=== PATIENT | female | born 1955 | race Caucasian/White ===

== ENCOUNTER 2017-09-25 17:03 | Emergency (ER) | payer MEDICARE, OTHER ==
[~2017-09-25] VITALS: Ht 162.6 cm; Wt 80.3 kg
[~2017-09-25 17:03] MED LIST: ALPRAZOLAM0.5 MG PO; AMITRIPTYLINE H50 MG PO; AZOR; BENTYL10 MG PO; BYSTOLIC10 MG PO; CARISOPRODOL350 MG PO; CO Q-10 PO; DIAZEPAM5 MG PO; ENTOCORT EC3 MG PO; FLORASTOR250 MG PO; HUMIRA20 MG/0.4; HUMIRA40 MG/0.1 SC; LEVSIN0.125 MG PO; LIBRAX CAPSULE1 EACH PO; LOMOTIL TABLET1 EACH PO; NEXIUM40 MG PO; PENTASA500 MG PO; PENTOXIFYLLINE400 MG PO; PHENERGAN SUPP25 MG PR; PREMARIN; PREMARIN0.625 MG PO; RELPAX40 MG PO; TRENTAL400 MG PO; ULTRAM 50MG50 MG PO; VICODIN 5-5001 EACH PO; VITAMIN D35000 UNI1 PO; XYZAL5 MG PO
[2017-09-25] MEDS ORDERED: SODIUM CHLORIDE 0.9% 1000ML 1,000 ML IV STA (17:14)
--- NOTE | 2017-09-25 17:55 | Diagnostic Imaging Report ---
EXAMINATION: CHEST 2 VIEWS INDICATION: \S\ORDER PLACED BY \[id number] \S\[id number] \S\Y COMPARISON: Chest radiograph on 08/21 2011 FINDINGS: PA and lateral views TUBES and LINES: None. LUNGS: Lungs are well inflated. Lungs are clear. There is no evidence of pneumonia or pulmonary edema. PLEURA: No pleural effusion or pneumothorax. HEART AND MEDIASTINUM: The cardiomediastinal silhouette is unremarkable.. BONES AND SOFT TISSUES: No acute osseous lesion. Right upper quadrant cholecystectomy clips. UPPER ABDOMEN: No free air under the diaphragm. IMPRESSION: No acute thoracic abnormality. Signed by: Dr. Joanne Quiles M.D. on 09/25/2017 5:51 PM
[2017-09-25 18:32] LABS: BILIRUBIN,URINE NEGATIVE (NEGATIVE); KETONES,URINE NEGATIVE (NEGATIVE); LEUKOCYTE ESTERASE ,URINE 2+ (NEGATIVE); NITRITE,URINE NEGATIVE (NEGATIVE); PROTEIN,URINE DIPSTICK NEGATIVE (NEGATIVE); URINE UROBILINOGEN 0.2 mg/dL (0.2 - 1)
[2017-09-25 18:33] LABS: CLARITY,URINE SL CLOUDY (CLEAR); COLOR,URINE YELLOW (YELLOW)
[2017-09-25 18:48] LABS: ALBUMIN 3.6 g/dL (3.5-5.0); ALBUMIN/GLOBULIN RATIO 0.8 (0.8-2.0); ANION GAP 12.9 mmol/L (8-16); CALCIUM 9.4 mg/dL (8.4-10.2); CREATININE, SERUM 1.06 mg/dL (0.57-1.11); POTASSIUM 3.9 mmol/L (3.5-5.1)
[2017-09-25] MEDS ORDERED: CEFTRIAXONE SOD 1 GM VIAL IV STA (19:09)
[2017-09-25 19:36] LABS: EOSINOPHILS % 1.8 % (0.0-6.0); HEMATOCRIT 36.3 % (34.2-44.1); LYMPHOCYTES # (AUTO) 1.1 (1.0-3.2); LYMPHOCYTES % 14.4 % (18.0-39.1); MEAN CORPUSCULAR HEMOGLOBIN 28.8 pg (28-32); MEAN CORPUSCULAR HGB CONC 33.1 g/dL (31-35); MEAN CORPUSCULAR VOLUME 87.1 fL (81-99); MONOCYTES # (AUTO) 0.7 (0.2-0.8); MONOCYTES % 9.5 % (4.4-11.3); NEUTROPHILS # (AUTO) 5.4 (2.1-6.9); NEUTROPHILS % 72.9 % (38.7-80.0); PLATELET COUNT 238 x10e3/uL (140-360); RED BLOOD COUNT 4.17 x10e6/uL (3.6-5.1); RED CELL DISTRIBUTION WIDTH 13.8 % (11.7-14.4)
[2017-09-25 19:37] LABS: BASOPHILS # (AUTO) 0.1 (0.0-0.1); EOSINOPHILS # (AUTO) 0.1 (0.0-0.4)
[2017-09-25 20:08] LABS: BACTERIA,URINE FEW /HPF; EPITHELIAL CELLS,URINE MODERATE /LPF; RBC,URINE 0-5 /HPF (0-5); WBC,URINE (MAN) 0-5 /HPF (0-5)
[2017-09-25 20:15] VITALS: BP 145/84
== END 2017-09-25 20:30 | disposition home or self-care (01) ==
LOC: ER 17:03
DX: R05 Cough (principal); J20.9 Acute bronchitis, unspecified; N30.00 Acute cystitis without hematuria; Z87.19 Personal history of other diseases of the digestive system
CPT/HCPCS: 36415; 71020; 80053; 81001; 85025; 87086; 87400; 96360; 96374; 99284; J0696; J7030

== ENCOUNTER → 2017-12-16 | Outpatient (CLI) | payer MEDICARE, OTHER ==
--- NOTE | 2017-12-24 08:56 | Pulmonary Function Test ---
DATE OF STUDY: December 16, 2017 SPIROMETRY: Demonstrates normal findings. FEV1 of 2.6 L or 88% predicted and FVC was 2.8 L or 88% of predicted with normal FEV1 over FVC ratio. Flow volume loop was unremarkable. LUNG VOLUMES: As performed by nitrogen washout method demonstrate no evidence of restriction. TLC was normal at 4.79 L or 93% of predicted. DIFFUSION: Capacity was mildly decreased at 14.41 mL per minute mmHg per minute or 63% of predicted. Of note, effort was 80% of expected, which may mildly decrease the measures of diffusion on this test. SUMMARY: Mild isolated diffusion defect. This may be seen in early emphysema, early restrictive lung disease, pulmonary vascular disorders, and anemia. Clinical correlation is recommended especially noting that there was mildly decreased interpretive delay of the diffusion test. Job#: [id number] RI cc:CLARITZA ALEJANDRA M.D.
== END ==
LOC: RESP 14:24
PROVIDERS: ATTEND Internal Medicine Critical Care Medicine
DX: J30.9 Allergic rhinitis, unspecified (principal); R05 Cough; G47.10 Hypersomnia, unspecified; K50.90 Crohn's disease, unspecified, without complications; K21.9 Gastro-esophageal reflux disease without esophagitis; G47.33 Obstructive sleep apnea (adult) (pediatric)
CPT/HCPCS: 94010; 94727; 94729

== ENCOUNTER → 2018-01-07 | Outpatient (CLI) | payer MEDICARE, OTHER | LOC: SLEEP 19:32 | PROVIDERS: ATTEND Internal Medicine Critical Care Medicine | DX: G47.33 Obstructive sleep apnea (adult) (pediatric) (principal) | CPT/HCPCS: 95811 ==

== ENCOUNTER 2018-05-25 10:25 | Observation (INO) | payer MEDICARE, OTHER ==
[2018-05-25] VITALS (21 sets, daily range): BP systolic 111–150; BP diastolic 65–85
[~2018-05-25] VITALS: Ht 160 cm; Wt 78.9 kg
[~2018-05-25 10:25] MED LIST changes: +AMLODIPINE BESYL5 MG PO; +ATENOLOL50 MG PO; +BENZONATATE100 MG PO; +LOTRONEX1 MG PO; +PRIMIDONE50 MG PO
[2018-05-25] MEDS ORDERED: VERAPAMIL HCL 2.5 MG/ML 2 ML VIAL ONE (11:44)
[2018-05-25] MEDS ORDERED: LIDOCAINE HCL 2% LOCAL 20 ML VIAL ONE (11:44)
[2018-05-25] MEDS ORDERED: HEPARIN SOD (PORCINE) 1000 UNIT/ML 30ML ONE (11:44)
[2018-05-25] MEDS ORDERED: HEPARIN SOD/SOD CHLORIDE 2,000 ML ONE (11:45)
[2018-05-25] MEDS ORDERED: NITROGLYCERIN/D5W 200 MCG/ML 0 ML ONE (11:45)
[2018-05-25] MEDS ORDERED: IOPAMIDOL 370 MG/ML 200 ML INFUS..BTL INJ ONE (11:45)
[2018-05-25] MEDS ORDERED: SODIUM CHLORIDE 0.9% 1000ML 1,000 ML ONE (11:51)
[2018-05-25] MEDS ORDERED: FENTANYL CITRATE/PF 100MCG/2 ML INJ ONE (13:42)
[2018-05-25] MEDS ORDERED: MIDAZOLAM HCL 2 MG/2 ML VIAL ONE ×2 (13:42→14:32)
--- NOTE | 2018-06-17 14:46 | Operative Report ---
DATE OF PROCEDURE: May 25, 2018 INDICATIONS: TIA. PROCEDURES PERFORMED: 1. Left heart catheterization., selective coronary angiography. 2. Bilateral extracranial carotid angiograms. COMPLICATIONS: None. RECOMMENDATIONS: Insertable loop recorder for cryptogenic stroke. Access obtained in the right femoral artery. A 6-Tajik sheath was placed. Diagnostic coronary angiogram revealed minimal coronary artery disease less than 10% luminal stenosis. LV ejection fraction 65%. LV end-diastolic pressure of 10. No gradient across the aortic valve pullback. Bilateral external carotid angiograms demonstrated no carotid artery disease. Right groin repaired using Mynx. Patient discharged home same day. Job#: [id number] GH
[2018-07-18] MEDS ORDERED: PREMARIN0.625 MG PO (10:12)
[2018-07-18] MEDS ORDERED: ELLURA PO (10:12)
== END 2018-05-25 21:14 | disposition home or self-care (01) ==
LOC: CATH LAB 10:25 → PACU V 16:25 → IMCU 17:06
PROVIDERS: ADMIT Internal Medicine Interventional Cardiology; ATTEND Internal Medicine Interventional Cardiology
DX: I25.10 Atherosclerotic heart disease of native coronary artery without angina pectoris (principal); G45.9 Transient cerebral ischemic attack, unspecified; I10 Essential (primary) hypertension; Z82.49 Family history of ischemic heart disease and other diseases of the circulatory system
CPT/HCPCS: 93458; G0378; J1644; J2001; J2250; J7030; Q9967

== ENCOUNTER 2018-05-27 15:22 | Inpatient (IN) | payer MEDICARE, OTHER ==
[~2018-05-27] VITALS: Ht 162.6 cm; Wt 79.9 kg
[2018-05-27] MEDS ORDERED: SODIUM CHLORIDE 0.9% 1000ML 1,000 ML IV STA (15:58)
[2018-05-27] MEDS ORDERED: ONDANSETRON HCL INJ 2 MG/ML VIAL IV STA (15:58)
[2018-05-27 16:43] LABS: BASOPHILS % 0.3 % (0.0-1.0); EOSINOPHILS # (AUTO) 0.1 (0.0-0.4); EOSINOPHILS % 0.4 % (0.0-6.0); HEMATOCRIT 34.8 % (34.2-44.1); HEMOGLOBIN 11.2 g/dL (12.0-16.0); LYMPHOCYTES # (AUTO) 0.6 (1.0-3.2); LYMPHOCYTES % 4.9 % (18.0-39.1); MEAN CORPUSCULAR HEMOGLOBIN 27.7 pg (28-32); MEAN CORPUSCULAR HGB CONC 32.2 g/dL (31-35); MEAN CORPUSCULAR VOLUME 85.9 fL (81-99); MONOCYTES # (AUTO) 0.3 (0.2-0.8); MONOCYTES % 2.5 % (4.4-11.3); NEUTROPHILS # (AUTO) 10.8 (2.1-6.9); NEUTROPHILS % 91.5 % (38.7-80.0); PLATELET COUNT 263 x10e3/uL (140-360); RED BLOOD COUNT 4.05 x10e6/uL (3.6-5.1); RED CELL DISTRIBUTION WIDTH 13.7 % (11.7-14.4)
[2018-05-27 16:44] LABS: BILIRUBIN,URINE NEGATIVE (NEGATIVE); CLARITY,URINE SL CLOUDY (CLEAR); COLOR,URINE YELLOW (YELLOW); KETONES,URINE NEGATIVE (NEGATIVE); LEUKOCYTE ESTERASE ,URINE TRACE (NEGATIVE); NITRITE,URINE NEGATIVE (NEGATIVE); PROTEIN,URINE DIPSTICK NEGATIVE (NEGATIVE); URINE UROBILINOGEN 0.2 mg/dL (0.2 - 1)
[2018-05-27 16:55] LABS: INR 1.03; PARTIAL THROMBOPLASTIN TIME 23.6 seconds (23.8-35.5); PROTHROMBIN TIME 12.7 seconds (11.9-14.5)
[2018-05-27 16:57] LABS: AMORPHOUS SEDIMENT,URINE MODERATE (FEW); BACTERIA,URINE MANY /HPF; EPITHELIAL CELLS,URINE MANY /LPF; RBC,URINE 0-5 /HPF (0-5); TRANSITIONAL EPI CELLS,URINE MODERATE
[2018-05-27 17:03] LABS: ALBUMIN 3.3 g/dL (3.5-5.0); ALBUMIN/GLOBULIN RATIO 0.9 (0.8-2.0); CALCIUM 8.8 mg/dL (8.4-10.2); CREATININE, SERUM 1.02 mg/dL (0.57-1.11); MAGNESIUM 1.2 MG/DL (1.3-2.1)
[2018-05-27 17:09] LABS: CREATINE KINASE MB 0.6 ng/mL (0-5.0)
--- NOTE | 2018-05-27 17:18 | Diagnostic Imaging Report ---
EXAMINATION: CHEST SINGLE (PORTABLE) INDICATION: \S\ERMD ORDER \[id number] \S\[id number] \S\Y COMPARISON: Chest radiograph 09/25/2017 FINDINGS: AP view TUBES and LINES: None. LUNGS: Lungs are well inflated. Lungs are clear. There is no evidence of pneumonia or pulmonary edema. PLEURA: No pleural effusion or pneumothorax. HEART AND MEDIASTINUM: The cardiomediastinal silhouette is unremarkable. Mildly tortuous thoracic aorta. BONES AND SOFT TISSUES: No acute osseous lesion. Soft tissues are unremarkable. UPPER ABDOMEN: No free air under the diaphragm. IMPRESSION: No acute thoracic abnormality. Signed by: Dr. Joanne Quiles M.D. on 05/27/2018 5:14 PM
[2018-05-27] MEDS ORDERED: ACETAMINOPHEN 1000 MG/100 ML IV STA (17:27)
[2018-05-27] MEDS ORDERED: MAGNESIUM SULF 1GRAM/DEXTROSE 100 ML IV ONE ×2 (18:15→21:30)
[2018-05-27] MEDS ORDERED: VANCOMYCIN 1GM/NS 250 ML 250 ML IV ONE (18:15)
[2018-05-27] MEDS ORDERED: ONDANSETRON HCL INJ 2 MG/ML VIAL IV PRN (18:15)
[2018-05-27] MEDS: SODIUM CHLORIDE 0.9% 1000ML 1,000 ML IV SCH (18:24)
[2018-05-27] MEDS ORDERED: IBUPROFEN 600 MG TAB PO STA (18:25)
[2018-05-27 19:50] VITALS: BP 101/57
[2018-05-27 22:02] VITALS: BP 103/61
[2018-05-27 23:09] VITALS: BP 103/61
[2018-05-28] VITALS (8 sets, daily range): BP systolic 89–145; BP diastolic 53–72
[2018-05-28] MEDS: ACETAMINOPHEN 325 MG TAB PO PRN ×2 (03:57→22:52)
[2018-05-28] MEDS: SODIUM CHLORIDE 0.9% 1000ML 1,000 ML IV SCH ×2 (03:58→15:38)
[2018-05-28 05:16] LABS: BASOPHILS % 0.3 % (0.0-1.0); HEMATOCRIT 31.1 % (34.2-44.1); HEMOGLOBIN 9.8 g/dL (12.0-16.0); LYMPHOCYTES # (AUTO) 0.6 (1.0-3.2); MEAN CORPUSCULAR HEMOGLOBIN 27.1 pg (28-32); MEAN CORPUSCULAR HGB CONC 31.5 g/dL (31-35); MEAN CORPUSCULAR VOLUME 86.1 fL (81-99); MONOCYTES # (AUTO) 0.3 (0.2-0.8); MONOCYTES % 3.4 % (4.4-11.3); NEUTROPHILS # (AUTO) 7.7 (2.1-6.9); PLATELET COUNT 213 x10e3/uL (140-360); RED BLOOD COUNT 3.61 x10e6/uL (3.6-5.1); RED CELL DISTRIBUTION WIDTH 14.1 % (11.7-14.4)
[2018-05-28 05:37] LABS: BLOOD UREA NITROGEN 12 mg/dL (7-26); BUN/CREATININE RATIO 14 (6-25); CALCIUM 7.9 mg/dL (8.4-10.2); CARBON DIOXIDE 22 mmol/L (22-29); CHLORIDE 109 mmol/L (98-107); CREATININE, SERUM 0.84 mg/dL (0.57-1.11); EST GLOMERULAR FILTRATION RATE > 60 ML/MIN (60-); GLUCOSE 103 mg/dL (74-118); SODIUM 140 mmol/L (136-145)
[2018-05-28] MEDS ORDERED: TRAMADOL HCL 50 MG TAB PO PRN (09:00)
[2018-05-28] MEDS ORDERED: CEFTRIAXONE SOD 1 GM/NS 50 ML 50 ML IV SCH (09:00)
[2018-05-28] MEDS ORDERED: AMLODIPINE BESYLATE 5 MG TAB PO SCH (09:15)
[2018-05-28] MEDS ORDERED: BUDESONIDE 3 MG CAPCR PO SCH (09:15)
[2018-05-28] MEDS ORDERED: BENZONATATE 100 MG CAP PO SCH (09:15)
[2018-05-28] MEDS: VANCOMYCIN 1GM/NS 250 ML 250 ML IV SCH ×2 (10:12→22:52)
[2018-05-28] MEDS: PRIMIDONE 50 MG TAB PO SCH ×3 (10:12→20:56)
[2018-05-28] MEDS: ATENOLOL 50 MG TAB PO SCH (10:12)
[2018-05-28] MEDS: CHLORDIAZEPOXIDE/CLIDINIUM 1 CAP PO SCH (10:12)
[2018-05-28] MEDS: MESALAMINE 500 MG CAPCR PO SCH ×2 (10:12→17:31)
[2018-05-28] MEDS: CEFTRIAXONE SOD 1 GM VIAL IV SCH ×2 (10:12→22:52)
[2018-05-28] MEDS ORDERED: PANTOPRAZOLE SOD 40 MG TABEC PO SCH (13:00)
[2018-05-28] MEDS ORDERED: BENZONATATE 100 MG CAP PO PRN (14:00)
[2018-05-28] MEDS: FAMOTIDINE 20 MG TAB PO SCH ×2 (14:00→17:31)
[2018-05-28] MEDS: METOCLOPRAMIDE HCL 10 MG TAB PO SCH ×3 (14:00→20:56)
--- NOTE | 2018-05-28 16:28 | History and Physical ---
PRIMARY CARE PROVIDER: Dr. Lex Suarez. CHIEF COMPLAINT: Fever with nausea and vomiting times 24 hours. HISTORY OF PRESENT ILLNESS: Ms. Blackwell is a 62-year-old lady who had a diagnostic heart cath which she told was normal 24 hours prior to her presentation with fever of 102.9 with nausea and vomiting. REVIEW OF SYSTEMS: She has had subjective fever and chills as noted. She denies weight loss. She denies sinus congestion or sore throat. She denies chest pain or palpitation. She denies shortness of breath, wheezing or cough. She denies abdominal pain. She has nausea and vomiting. She denies melena. She does have a history of Crohn's disease. She denies dysuria or flank pain. She denies rash or pruritus. She denies joint pain or swelling. She denies headache, vertigo or loss of consciousness. She denies depression, agitation, homicidal or suicidal ideation. PAST MEDICAL HISTORY: Significant for longstanding hypertension, severe gastroesophageal reflux with hiatal hernia and Crohn's disease with elements of IBS. She has had a history of lumbar fusion. She has had hysterectomy. She had a heart cath 2 days ago as noted. She did have a staph abscess drained from the back of her neck in 2009. She also has Crohn's disease. CURRENT MEDICATIONS: Include Lotronex 1 mg daily, amitriptyline 25 mg daily, Saccharomyces boulardii 250 mg daily, CoQ10 daily, Norvasc 5 mg daily, atenolol 50 mg daily, benzonatate 100 mg as needed, Entocort EC or budesonide 3 mg daily, Librax capsule daily, Pentasa 500 mg twice a day, primidone 50 mg 3 times a day. ALLERGIES: SHE HAS A STATED ALLERGY TO RAGWEED POLLEN, PROTONIX AND PREDNISONE. FAMILY HISTORY: Remarkable for hypertension. SOCIAL HISTORY: The patient is . Wolof is her primary language. She is , here with her . She does not smoke, drink or use illegal drugs, and she is generally independently functioning. PHYSICAL EXAM PSYCHIATRIC: She is alert and oriented times 3 with normal mood and affect. CONSTITUTIONAL: She has a normal body habitus, is in no acute distress. VITAL SIGNS: As follows: Initial temperature 102.9, currently 98.6, blood pressure 116/64, pulse 76, respiratory rate 14. O2 sat 96%. HEENT: Her head is atraumatic. Her eyes are anicteric with clear conjunctivae. Ears and nares are without erythema or discharge. Oropharynx is clear. NECK: Supple with no mass or thyromegaly. LYMPHATIC: She has no palpable cervical, axillary or inguinal adenopathy. CARDIOVASCULAR: Her heart has a regular rate and rhythm without murmur or extra sounds. She has no carotid bruit. She has no peripheral edema. She has palpable dorsal pedal pulses. RESPIRATORY: Lungs are clear to auscultation and percussion with normal respiratory effort. GASTROINTESTINAL: Her abdomen is soft without organomegaly, masses, or tenderness. She has normal bowel sounds present. CUTANEOUS: Her skin is warm and dry to touch with no rash or skin breakdown. MUSCULOSKELETAL: Her joints are in normal alignment without erythema or swelling. She has no calf tenderness. NEUROLOGIC: Nonfocal with intact cranial nerves and no motor or sensory deficits. DIAGNOSTIC STUDIES: Chest x-ray shows no acute disease. Her UA shows many bacteria but few white cells. Her flu screen is negative. Lactic acid 10.9. Her initial CBC showed a white count of 11.79 with 92% neutrophils, 5% lymphocytes. Hemoglobin 11.2, hematocrit 34.8, and platelet count 263,000. Her chemistries showed normal electrolytes. CO2 21. Creatinine 1.02, BUN 14 for a GFR of 55. Glucose 137. Calcium 8.8. After hydration overnight, electrolytes are normal. Creatinine 0.84, BUN 12 for a normal GFR. Glucose 103. Calcium 7.9. White count 8.71 with 89% neutrophils, hemoglobin 9.8, hematocrit 31.1 and platelet count 213,000. Coags are normal. Transaminases, bilirubin, alk phos are all normal. Lactic acid is 10.9. IMPRESSION AND PLAN 1. Sepsis due to urinary tract infection. The patient received an IV fluid bolus in the ER and started on IV vancomycin and Rocephin, to also cover possible bacteremia from the heart cath she had 24 hours previous. 2. Urinary tract infection. The patient is on IV Rocephin pending culture results. Blood cultures are also pending. 3. Hypertension, well controlled. We will continue atenolol and Norvasc. 4. Gastroesophageal reflux disease. We will treat with Pepcid and Reglan for now. 5. Crohn's disease. We will continue her Pentasa, Entocort and Librax. 6. For prophylaxis, she is on SCDs for deep venous thrombosis prophylaxis and Pepcid for gastrointestinal prophylaxis. Job#: [id number] SHASHI
[2018-05-28] MEDS ORDERED: HYDROCODONE/APAP 5MG-325MG TAB PO PRN (23:00)
[2018-05-29] VITALS (8 sets, daily range): BP systolic 95–126; BP diastolic 56–87
[2018-05-29] MEDS: SODIUM CHLORIDE 0.9% 1000ML 1,000 ML IV SCH (01:07)
[2018-05-29 05:42] LABS: BASOPHILS % 0.3 % (0.0-1.0); EOSINOPHILS # (AUTO) 0.1 (0.0-0.4); EOSINOPHILS % 0.9 % (0.0-6.0); LYMPHOCYTES # (AUTO) 1.7 (1.0-3.2); LYMPHOCYTES % 28.8 % (18.0-39.1); MEAN CORPUSCULAR HEMOGLOBIN 26.8 pg (28-32); MEAN CORPUSCULAR VOLUME 86.3 fL (81-99); MONOCYTES # (AUTO) 0.4 (0.2-0.8); MONOCYTES % 6.7 % (4.4-11.3); NEUTROPHILS # (AUTO) 3.7 (2.1-6.9); NEUTROPHILS % 63.1 % (38.7-80.0); PLATELET COUNT 219 x10e3/uL (140-360); RED BLOOD COUNT 3.36 x10e6/uL (3.6-5.1); RED CELL DISTRIBUTION WIDTH 14.3 % (11.7-14.4)
[2018-05-29 05:53] LABS: ANION GAP 9.5 mmol/L (8-16); BLOOD UREA NITROGEN 6 mg/dL (7-26); BUN/CREATININE RATIO 7 (6-25); CALCIUM 7.8 mg/dL (8.4-10.2); CARBON DIOXIDE 22 mmol/L (22-29); CHLORIDE 106 mmol/L (98-107); CREATININE, SERUM 0.84 mg/dL (0.57-1.11); EST GLOMERULAR FILTRATION RATE > 60 ML/MIN (60-); GLUCOSE 86 mg/dL (74-118); MAGNESIUM 1.6 MG/DL (1.3-2.1); POTASSIUM 3.5 mmol/L (3.5-5.1); SODIUM 134 mmol/L (136-145)
[2018-05-29 06:20] LABS: THYROID STIMULATING HORMONE 7.121 uIU/mL (0.350-4.940)
[2018-05-29] MEDS ORDERED: HYDROCODONE/APAP 10MG-325MG TAB PO PRN (07:30)
[2018-05-29] MEDS ORDERED: SODIUM CHLORIDE 0.9% 1000ML 1,000 ML IV ONE (07:30)
[2018-05-29] MEDS: FAMOTIDINE 20 MG TAB PO SCH ×2 (08:29→16:09)
[2018-05-29] MEDS: PRIMIDONE 50 MG TAB PO SCH ×3 (08:29→21:49)
[2018-05-29] MEDS: LEVOTHYROXINE SODIUM 25 MCG TABLET PO SCH (08:29)
[2018-05-29] MEDS: CHLORDIAZEPOXIDE/CLIDINIUM 1 CAP PO SCH (08:29)
[2018-05-29] MEDS: METOCLOPRAMIDE HCL 10 MG TAB PO SCH ×4 (08:29→21:49)
[2018-05-29] MEDS: AMLODIPINE BESYLATE 5 MG TAB PO SCH (08:30)
[2018-05-29] MEDS: CEFTRIAXONE SOD 1 GM VIAL IV SCH ×2 (08:30→21:49)
[2018-05-29] MEDS: ATENOLOL 50 MG TAB PO SCH (08:30)
[2018-05-29] MEDS: MESALAMINE 500 MG CAPCR PO SCH ×2 (08:30→16:09)
[2018-05-29] MEDS: VANCOMYCIN 1GM/NS 250 ML 250 ML IV SCH ×2 (10:01→21:49)
[2018-05-29] MEDS: ACETAMINOPHEN 325 MG TAB PO PRN (16:09)
[2018-05-30] VITALS: BP 111/67
[2018-05-30 04:00] VITALS: BP 117/61
[2018-05-30] MEDS: LEVOTHYROXINE SODIUM 25 MCG TABLET PO SCH (05:39)
[2018-05-30 05:58] LABS: ANION GAP 11.4 mmol/L (8-16); BASOPHILS % 0.5 % (0.0-1.0); BLOOD UREA NITROGEN 5 mg/dL (7-26); BUN/CREATININE RATIO 6 (6-25); CALCIUM 8.1 mg/dL (8.4-10.2); CARBON DIOXIDE 23 mmol/L (22-29); CHLORIDE 108 mmol/L (98-107); CREATININE, SERUM 0.78 mg/dL (0.57-1.11); EOSINOPHILS # (AUTO) 0.2 (0.0-0.4); EOSINOPHILS % 2.5 % (0.0-6.0); EST GLOMERULAR FILTRATION RATE > 60 ML/MIN (60-); GLUCOSE 83 mg/dL (74-118); HEMATOCRIT 29.1 % (34.2-44.1); HEMOGLOBIN 9.1 g/dL (12.0-16.0); LYMPHOCYTES # (AUTO) 1.6 (1.0-3.2); LYMPHOCYTES % 24.8 % (18.0-39.1); MAGNESIUM 1.5 MG/DL (1.3-2.1); MEAN CORPUSCULAR HEMOGLOBIN 26.8 pg (28-32); MEAN CORPUSCULAR HGB CONC 31.3 g/dL (31-35); MEAN CORPUSCULAR VOLUME 85.8 fL (81-99); MONOCYTES # (AUTO) 0.5 (0.2-0.8); MONOCYTES % 7.5 % (4.4-11.3); NEUTROPHILS # (AUTO) 4.1 (2.1-6.9); NEUTROPHILS % 64.4 % (38.7-80.0); PLATELET COUNT 224 x10e3/uL (140-360); POTASSIUM 3.4 mmol/L (3.5-5.1); RED BLOOD COUNT 3.39 x10e6/uL (3.6-5.1); RED CELL DISTRIBUTION WIDTH 14.2 % (11.7-14.4); SODIUM 139 mmol/L (136-145)
[2018-05-30 06:24] LABS: FOLATE 7.3 ng/mL (7.0-15.4)
[2018-05-30 06:43] LABS: FERRITIN 230.58 ng/mL (4.63-204.00)
[2018-05-30] MEDS ORDERED: POTASSIUM CHLORIDE 20 MEQ TAB CR PO STA (07:12)
[2018-05-30] MEDS ORDERED: BACTRIM DS TAB1 EACH PO (07:14)
[2018-05-30] MEDS ORDERED: CIPRO500 MG PO (07:14)
[2018-05-30] MEDS ORDERED: ZOFRAN ODT4 MG PO (07:16)
[2018-05-30] MEDS ORDERED: LEVOTHYROXINE25 MCG PO (07:16)
[2018-05-30] MEDS ORDERED: FERROUS SULFAT325 MG PO (07:21)
[2018-05-30] MEDS ORDERED: VITAMIN C500 M2 PO (07:21)
[2018-05-30] MEDS: FAMOTIDINE 20 MG TAB PO SCH (07:30)
[2018-05-30] MEDS: METOCLOPRAMIDE HCL 10 MG TAB PO SCH (07:30)
[2018-05-30 08:00] VITALS: BP 116/65
[2018-05-30] MEDS ORDERED: FERROUS SULFATE 325 MG TAB PO SCH (08:00)
[2018-05-30] MEDS ORDERED: ASCORBIC ACID 500 MG TAB PO SCH (09:00)
[2018-05-30] MEDS: PRIMIDONE 50 MG TAB PO SCH (09:00)
[2018-05-30] MEDS: MESALAMINE 500 MG CAPCR PO SCH (09:00)
[2018-05-30] MEDS: AMLODIPINE BESYLATE 5 MG TAB PO SCH (09:00)
[2018-05-30] MEDS ORDERED: OYST-CAL-D 500MG TABLET PO SCH (09:00)
[2018-05-30] MEDS: CHLORDIAZEPOXIDE/CLIDINIUM 1 CAP PO SCH (09:00)
[2018-05-30] MEDS: ATENOLOL 50 MG TAB PO SCH (09:00)
[2018-05-30] MEDS: CEFTRIAXONE SOD 1 GM VIAL IV SCH (09:59)
[2018-05-30] MEDS ORDERED: VANCOMYCIN HCL 1.5 GM in SODIUM CHLORIDE 0.9% 250ML 300 ML IV SCH (10:00)
[2018-05-30 10:02] VITALS: BP 116/65
--- NOTE | 2018-05-30 13:30 | Discharge Summary ---
ADMITTING DIAGNOSES 1. Sepsis due to urinary tract infection. 2. Urinary tract infection. 3. Hypertension, well controlled. 4. Gastroesophageal reflux disease. 5. Crohn disease. DISCHARGE DIAGNOSES 1. Sepsis due to urinary tract infection. 2. Urinary tract infection. 3. Hypertension, well controlled. 4. Gastroesophageal reflux disease. 5. Crohn disease. 6. Chronic cough. 7. Rule out pneumonia. 8. Rule out urinary tract infection. HISTORY: The patient has a history of hypertension, severe GERD with hiatal hernia, Crohn disease with elements of IBS. Surgical history: History of lumbar fusion, hysterectomy, heart cath 2 days ago, staph infection on the back of her neck in 2009 with drainage. HOSPITAL COURSE: This 52-year-old female, who had a heart cath which turned out to be normal, was admitted with fever of 102.9 with nausea and vomiting 24 hours after her cath. On admission, the patient was started on vancomycin and Rocephin. Chest x-ray was negative. Blood cultures were negative. UA was positive. The urine culture was negative. The patient's leukocytosis and fever trended down on vancomycin and Rocephin, so the patient was discharged home with Bactrim and Cipro. She was also started on levothyroxine for a new diagnosis of hypothyroidism and iron and vitamin C for anemia. The patient will discharge home and follow up with primary care in 1 to 2 weeks. Patient understands the discharge instructions and agrees to the plan. Vital signs are stable. The patient is afebrile. The patient is excited and ready to go home. Her flu swab was negative, and stool for blood was also negative. Dictated by: Luzmaria Cabrera NP ALLISON GODOY MD Job#: [id number]
== END 2018-05-30 10:25 | disposition home or self-care (01) | DRG 872 ==
LOC: ER 15:22 → ERHOLD 18:21 → IMCU 19:43 → OBSVTOIN 05-28 12:50 → MED/SURG2 05-28 15:28
PROVIDERS: ADMIT Internal Medicine; ATTEND Internal Medicine
DX: A41.9 Sepsis, unspecified organism (principal); N39.0 Urinary tract infection, site not specified; K50.90 Crohn's disease, unspecified, without complications; K21.9 Gastro-esophageal reflux disease without esophagitis; Z82.49 Family history of ischemic heart disease and other diseases of the circulatory system; I10 Essential (primary) hypertension; D64.9 Anemia, unspecified; E03.9 Hypothyroidism, unspecified; R05 Cough; K44.9 Diaphragmatic hernia without obstruction or gangrene
CPT/HCPCS: 36415; 71045; 80048; 80053; 80202; 81001; 82270; 82550; 82553; 82607; 82728; 82746; 82948; 83540; 83605; 83735; 84439; 84443; 84466; 84484; 85025; 85610; 85730; 87040; 87086; 87400; 93005; 99284; G0378; J0696; J2405; J3370; J3475; J7030; J7050

== ENCOUNTER → 2018-07-19 | Day surgery (SDC) | payer MEDICARE, OTHER ==
[~2018-07-19] VITALS: Ht 162.6 cm; Wt 79.8 kg
[~2018-07-19] MED LIST changes: +BACTRIM DS TAB1 EACH PO; +CIPRO500 MG PO; +ELLURA PO; +FERROUS SULFAT325 MG PO; +LEVOTHYROXINE25 MCG PO; +LIDOCAINE 1% W/EPINEPHRINE 20 ML VIAL ONE; +VITAMIN C500 M2 PO; +ZOFRAN ODT4 MG PO
--- OUTSIDE RECORDS SUMMARY | 2018-07-19 06:33 | XMS REPORT | Clinical Summary ---
Author Author [facility] Organization [facility] Address Unknown Phone Unavailable Care Team Providers Care Corsets Salesperson Name Role Phone Lex Suarez DO PCP Allergies Active Allergy Reactions Severity Noted Date Comments Pantoprazole 03/01/2018 Prednisone 03/01/2018 Ragweed Pollen 03/01/2018 Current Medications Prescription Sig. Disp. Refills Start End Date Status Date amitriptyline (ELAVIL) 50 Take 50 mg by mouth Active MG tablet nightly. amlodipine-olmesartan Take 1 tablet by mouth Active (PARVIN) 5-20 mg per tablet daily. budesonide EC (ENTOCORT Take 6 mg by mouth every Active EC) 3 mg 24 hr capsule morning. chlordiazepoxide-clidiniu Take 1 capsule by mouth 4 Active m (LIBRAX) 5-2.5 mg per (four) times a day before capsule meals and nightly. coenzyme Q10 (COQ-10) 100 Take 100 mg by mouth Active mg capsule daily. alosetron (LOTRONEX) 1 MG Take 1 mg by mouth 2 Active tablet (two) times a day. mesalamine (PENTASA) 500 Take 500 mg by mouth 4 Active MG CR capsule (four) times a day. primidone (MYSOLINE) 50 Take 50 mg by mouth 4 Active MG tablet (four) times a day. benzonatate (TESSALON) 04/04/20 Active 200 MG capsule 18 HYDROcodone-acetaminophen 04/12/20 Active (NORCO) 5-325 mg per 18 tablet cetirizine (ZyrTEC) 10 MG Take 10 mg by mouth Active tablet daily. atenolol (TENORMIN) 50 MG 04/20/20 Active tablet 18 cholecalciferol, vitamin Daily Active D3, 50,000 unit tablet Saccharomyces boulardii Take 250 mg by mouth 2 Active (FLORASTOR) 250 mg (two) times a day. capsule nebivolol (BYSTOLIC) 10 Take 10 mg by mouth Active MG tablet daily. terbinafine HCl (LamiSIL) Take 250 mg by mouth Active 250 mg tablet daily. nebivolol (BYSTOLIC) 10 Take 10 mg by mouth 06/07/20 Discontin MG tablet daily. 18 ued pentoxifylline (TRENTal) Take 400 mg by mouth 3 06/08/20 Discontin 400 mg CR tablet (three) times a day with 18 ued meals. promethazine (PHENERGAN) Take 25 mg by mouth every 04/20/20 Discontin 25 MG tablet 6 (six) hours as needed 18 ued for nausea or vomiting. ranitidine (ZANTAC) 300 Take 300 mg by mouth 04/20/20 Discontin MG capsule every evening. 18 ued DEXILANT 60 mg capsule TK ONE C PO BID 30 3 03/01/20 04/20/20 Discontin MINUTES PRIOR TO A MEAL 18 18 ued mupirocin (BACTROBAN) 2 % Apply topically 2 (two) 30 g 2 04/20/20 05/04/20 ointment times a day for 14 days. 18 18 1 inch ribbon to nasal irrigation, twice daily gentamicin (GARAMYCIN) Apply 10 drops to eye 2 30 mL 1 04/20/20 05/04/20 0.3 % ophthalmic solution (two) times a day for 14 18 18 days. Disregard ophthalmic instructions. 10 drops to nasal saline irrigation, twice daily budesonide (PULMICORT) 1 Take 2 mL (1 mg total) by 56 mL 1 04/20/20 05/04/20 mg/2 mL nebulizer nebulization 2 (two) 18 18 solution times a day for 14 days. 1 ampule to nasal irrigation, twice daily amoxicillin-pot Take 1 tablet (500 mg 42 tablet 0 04/27/20 05/18/20 clavulanate (AUGMENTIN) total) by mouth 2 (two) 18 18 500-125 mg per tablet times a day for 21 days. sulfamethoxazole-trimetho Take 1 tablet by mouth 2 42 tablet 0 04/27/20 05/18/20 prim (BACTRIM DS) 800-160 (two) times a day for 21 18 18 mg per tablet days. amLODIPine (NORVASC) 5 mg Take 5 mg by mouth daily. 06/07/20 Discontin tablet 18 ued omeprazole (PriLOSEC) 40 Take 40 mg by mouth 06/08/20 Discontin MG capsule daily. 18 ued ciprofloxacin (CIPRO) 500 Take 500 mg by mouth 2 06/03/20 06/09/20 MG tablet (two) times a day. 18 18 levothyroxine (SYNTHROID, Take 25 mcg by mouth 07/04/20 Discontin LEVOXYL) 25 mcg tablet every morning. 18 ued sulfamethoxazole-trimetho Take 1 tablet by mouth 2 06/03/20 06/09/20 prim (BACTRIM SS) 400-80 (two) times a day. 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 Retention of urine 04/13/2018 Urinary urgency 04/13/2018 Cough 04/13/2018 Hernia, hiatal 04/13/2018 Crohn's disease (HCC) 03/01/2018 Encounters Date Type Specialty Care Team Description 07/04/2018 [facility] Gastroenterology Young Ordoñez MD Encounter 07/04/2018 Anesthesia Gastroenterology Godwin Celaya, Event 07/04/2018 Procedure Pass Gastroenterology 07/04/2018 Surgery Gastroenterology Young Ordoñez MD ESOPHAGOGASTRODUODENOSCOP Y (EGD) W/ VENEGAS 06/08/2018 Hospital Gastroenterology Young Ordoñez MD Encounter 06/08/2018 Anesthesia Gastroenterology Godwin Celaya, Event 06/08/2018 Procedure Pass Gastroenterology 06/08/2018 Surgery Gastroenterology Young Ordoñez MD ESOPHAGOGASTRODUODENOSCOP Y (EGD) WITH VENEGAS CAPSULE PLACEMENT 05/18/2018 Office Visit Otolaryngology Zandra Rivas MD Chronic cough (Primary Dx); Chronic non-seasonal allergic rhinitis, unspecified trigger; Laryngopharyngeal reflux (LPR) 05/09/2018 Telephone General Surgery Carin Álvarez MA 04/27/2018 Office Visit Otolaryngology Zandra Rivas MD Chronic cough (Primary Dx); Chronic maxillary sinusitis 04/26/2018 Hospital Radiology Zandra Rivas MD Chronic cough Encounter 04/21/2018 Telephone Otolaryngology Sandra Momin MA 04/20/2018 Office Visit Otolaryngology Zandra Rivas MD Chronic cough (Primary Dx); Chronic non-seasonal allergic rhinitis, unspecified trigger 04/13/2018 Office Visit General Surgery Sim Burgess MD Hernia, hiatal (Primary Dx); Cough; Crohn's disease with complication, unspecified gastrointestinal tract location 03/21/2018 Telephone General Surgery Ruth Ann Lee MA 03/09/2018 Hospital Radiology Sim Burgess MD Cough; Encounter Gastroesophageal reflux disease without esophagitis 03/09/2018 Ancillary General Surgery Sim Burgess MD Cough; Orders Gastroesophageal reflux disease without esophagitis 03/02/2018 Telephone General Surgery Carin Álvarez MA 03/01/2018 Office Visit General Surgery Sim Burgess MD Cough (Primary Dx); Gastroesophageal reflux disease without esophagitis; Hernia, hiatal; Crohn's disease with complication, unspecified gastrointestinal tract location; Incisional hernia, without obstruction or gangrene after 07/18/2017 Family History Medical History Relation Name Comments Diabetes Father Hypertension Father Heart disease Mother Relation Name Status Comments Father Mother Social History Tobacco Use Types Packs/Day Years Used Date Never Smoker Smokeless Tobacco: Never Used Alcohol Use Drinks/Week oz/Week Comments Yes 1 Standard 0.6 drinks or equivalent Sex Assigned at Date Recorded Not on file Last Filed Vital Signs Vital Sign Reading Time Taken Blood Pressure 153/68 07/04/2018 10:04 AM CDT Pulse 60 07/04/2018 10:04 AM CDT Temperature 36.7 C (98 F) 07/04/2018 9:44 AM CDT Respiratory Rate 20 07/04/2018 10:04 AM CDT Oxygen Saturation 93% 07/04/2018 10:04 AM CDT Inhaled Oxygen - - Concentration Weight 78.9 kg (174 lb) 07/04/2018 7:37 AM CDT Height 162.6 cm (5' 4") 07/04/2018 7:37 AM CDT Body Mass Index 29.87 07/04/2018 7:37 AM CDT Plan of Treatment Health Maintenance Due Date Last Done Comments CERVICAL CANCER SCREENING 1974 BREAST CANCER SCREENING 2003 COLON CANCER SCREENING 2003 SHINGRIX VACCINE (#1) 2003 ZOSTER VACCINE 2013 INFLUENZA VACCINE 04/13/2018 Implants Implanted Type Area Wharf Operator Device Expiration Model / Identifier Date Serial / Lot Capsule Ph W/ Ds Venegas - [id number] Surgical N/A: N/A GIVEN IMAGING 04/12/2019 FGS 0312 / Implanted: 06/08/2018 (Quantity not Implants; / on file) Expanders; [id number] Extenders; Surgical Wires Capsule Ph W/ Ds Venegas - [id number] Surgical N/A: N/A GIVEN IMAGING 01/19/2019 FGS 0312 / Implanted: 07/04/2018 (Quantity not Implants; / on file) Expanders; [id number] Extenders; Surgical Wires Procedures Procedure Name Priority Date/Time Associated Diagnosis Comments SURGICAL PATHOLOGY Routine 07/04/2018 Results for this REQUEST 9:35 AM CDT procedure are in the results section. ESOPHAGOGASTRODUODENOSCOP 07/04/2018 HIATAL HERNIA, GERD, Y (EGD) 9:00 AM CDT DYSPEPSIA, CHRONIC COUGH SURGICAL PATHOLOGY Routine 06/08/2018 Results for this REQUEST 8:27 AM CDT procedure are in the results section. ESOPHAGOGASTRODUODENOSCOP 06/08/2018 HIATAL HERNIA Y (EGD) 8:00 AM CDT K44.9,GERD,K21.9,DYSPEPSI A AND OTHER UNSPECIFIED DISORDERS K30,CHRONIC COUGHT R05,DIETARY SURVEILLANCE Z71.3 ECG 12-LEAD Routine 06/08/2018 Results for this 7:19 AM CDT procedure are in the results section. CT SINUS WO CONTRAST Routine 04/26/2018 Chronic cough Results for this 12:57 PM CDT procedure are in the results section. FL UGI W AIR W KUB Routine 03/09/2018 Cough Results for this 10:00 AM CDT Gastroesophageal reflux procedure are in the disease without results section. esophagitis after 07/18/2017 Results * Surgical pathology request (07/04/2018 9:35 AM) Only the most recent of 2 results within the time period is included. [facility] DEPARTMENT OF PATHOLOGY AND GENOMIC MEDICINE Surgical pathology report See link below for PDF Lab [facility] DEPARTMENT OF Report PATHOLOGY AND GENOMIC MEDICINE Result status This is Final Report for [facility] DEPARTMENT OF [id number] PATHOLOGY AND GENOMIC MEDICINE Performing Organization Address City/State/Zipcode Phone Number [facility] [place] [address] [place] [address] PATHOLOGY AND GENOMIC MEDICINE * ECG 12 lead (06/08/2018 7:19 AM) Ventricular rate 53 [facility] Atrial rate 53 [facility] VT interval 190 [facility] QRSD interval 82 [facility] QT interval 454 [facility] QTC interval 426 [facility] P axis 1 76 [facility] QRS axis 1 -42 [facility] T wave axis 23 [facility] EKG impression Sinus bradycardia-Left axis [facility] deviation-Nonspecific ST abnormality-Abnormal ECG-No previous ECGs available- Performing Organization Address City/[facility] Phone Number [facility] [address] [place] [address] * CT Sinus Wo Contrast (04/26/2018 12:57 PM) Narrative Performed At EXAMINATION: CT SINUS WO CONTRAST [facility] CLINICAL HISTORY: R05 Cough, chronic coughrule out polypschronic sinusitis COMPARISON:None TECHNIQUE: Axial noncontrast enhanced images were obtained through the paranasal sinuses. Bone and soft tissue windows were displayed as well as coronal and sagittal reconstructed images.CT imaging was performed with iterative reconstruction technique and/or automated exposure control to reduce radiation dose. FINDINGS: Frontal sinuses: Clear with patency of the frontal recesses. Ethmoid air cells: Clear with patency of the sphenoethmoidal and frontoethmoidal recesses. Maxillary sinuses: Trace mucosal thickening inferiorly. Patency of the bilateral ostiomeatal units. Sphenoid sinuses: With trace mucosal thickening of the posterior right sphenoid sinus. Patency of the bilateral sphenoid ostia. Nasal cavity: No evidence of ulceration or mass. Mild leftward nasal septal deviation with tiny apical spur. Mild mucosal nodularity of the inferior turbinates. Osteitis: None. Other: Orbital contents are unremarkable. Limited evaluation of visualized intracranial contents demonstrates a chronic lacunar infarct involving the ventral right thalamus. Trace right mastoid tip effusion. Mild degenerative changes of the right temporal mandibular joint. IMPRESSION: 1. No significant paranasal sinus inflammation. Patency of the bilateral sinonasal drainage pathways. No evidence of nasal polyp. [id number] Procedure Note Interface, Radiology Results Incoming - 04/26/2018 1:32 PM CDT EXAMINATION: CT SINUS WO CONTRAST CLINICAL HISTORY: R05 Cough, chronic cough rule out polyps chronic sinusitis COMPARISON: None TECHNIQUE: Axial noncontrast enhanced images were obtained through the paranasal sinuses. Bone and soft tissue windows were displayed as well as coronal and sagittal reconstructed images. CT imaging was performed with iterative reconstruction technique and/or automated exposure control to reduce radiation dose. FINDINGS: Frontal sinuses: Clear with patency of the frontal recesses. Ethmoid air cells: Clear with patency of the sphenoethmoidal and frontoethmoidal recesses. Maxillary sinuses: Trace mucosal thickening inferiorly. Patency of the bilateral ostiomeatal units. Sphenoid sinuses: With trace mucosal thickening of the posterior right sphenoid sinus. Patency of the bilateral sphenoid ostia. Nasal cavity: No evidence of ulceration or mass. Mild leftward nasal septal deviation with tiny apical spur. Mild mucosal nodularity of the inferior turbinates. Osteitis: None. Other: Orbital contents are unremarkable. Limited evaluation of visualized intracranial contents demonstrates a chronic lacunar infarct involving the ventral right thalamus. Trace right mastoid tip effusion. Mild degenerative changes of the right temporal mandibular joint. IMPRESSION: 1. No significant paranasal sinus inflammation. Patency of the bilateral sinonasal drainage pathways. No evidence of nasal polyp. [id number] Performing Organization Address City/State/Zipcode Phone Number [facility] [address] [place] [address] * FL UGI w Air W KUB (03/09/2018 10:00 AM) Narrative Performed At EXAMINATION:FL UGI W AIR W KUB [facility] CLINICAL HISTORY:R05 Cough, K21.9 Gastro-esophageal reflux disease without esophagitis, refluxcough COMPARISON:None. Examination performed with thin and thick barium along with effervescent crystals. Fluoroscopy time 2 minutes 4 seconds. 21 exposures. FINDINGS: Escapement Maker view abdomen shows changes from previous lumbar fusion with pedicle screws and lateral fusion masses at the L4-5 and L5-S1 levels. Cholecystectomy clips present. The patient's swallowing mechanism was intact. Moderate diffuse tertiary contractions of esophagus present no ulceration mass or mucosal abnormality. No hiatal hernia. Stomach duodenal bulb and C-loop unremarkable in appearance. No ulceration or mass or mucosal abnormality Mild gastroesophageal reflux IMPRESSION: Tertiary contractions of the esophagus. Mild gastroesophageal reflux [id number] Procedure Note Interface, Radiology Results Incoming - 03/09/2018 11:54 AM CDT EXAMINATION: FL UGI W AIR W KUB CLINICAL HISTORY: R05 Cough, K21.9 Gastro-esophageal reflux disease without esophagitis, reflux cough COMPARISON: None. Examination performed with thin and thick barium along with effervescent crystals. Fluoroscopy time 2 minutes 4 seconds. 21 exposures. FINDINGS: Escapement Maker view abdomen shows changes from previous lumbar fusion with pedicle screws and lateral fusion masses at the L4-5 and L5-S1 levels. Cholecystectomy clips present. The patient's swallowing mechanism was intact. Moderate diffuse tertiary contractions of esophagus present no ulceration mass or mucosal abnormality. No hiatal hernia. Stomach duodenal bulb and C-loop unremarkable in appearance. No ulceration or mass or mucosal abnormality Mild gastroesophageal reflux IMPRESSION: Tertiary contractions of the esophagus. Mild gastroesophageal reflux [id number] Performing Organization Address City/State/Zipcomi Phone Number [facility] [address] [place] [address] after 07/18/2017 Insurance Payer Benefit Subscriber ID Type Phone Address Plan / Group MEDICARE MEDICARE xxxxxxxxxx Medicare [place], [place] PART A AND B AETNA AETNA PPO xxxxxxxxxx [place] [address]
--- OUTSIDE RECORDS SUMMARY | 2018-07-19 06:33 | XMS REPORT | Clinical Summary ---
Author Author CARLOS [facility] Address Unknown Phone Unavailable Care Team Providers Care Traffic Or System Dispatcher Name Role Phone PCP Unavailable Allergies Not on File Medications Not on file Active Problems Not on file Encounters Care Team Description Date Type Specialty Elsi Cedillo MD Visit for screening mammogram (Primary Dx); Screening for osteoporosis; Family history of ovarian carcinoma 09/21/2017 Outside Orders Central Scheduling after 07/18/2017 Social History Date Tobacco Use Types Packs/Day Years Used Never Assessed Sex Assigned at Date Recorded Not on file Industry Job Start Date Occupation Not on file Not on file Not on file Travel End Travel History Travel Start No recent travel history available. Last Filed Vital Signs Not on file Plan of Treatment Not on file Results Not on fileafter 07/18/2017 Insurance Payer Benefit Subscriber ID Type Phone Address Plan / Group MEDICARE MEDICARE A xxxxxxxxxx Medicare B AETNA - MGD CARE AETNA xxxxxxxxxx Comm INDEMNITY NON CONTR (Home) [place] [address]
[2018-07-19 06:50] VITALS: BP 144/85
--- NOTE | 2018-07-19 08:46 | Operative Report ---
DATE OF PROCEDURE: July 19, 2018 INDICATIONS: Palpitations. PROCEDURE PERFORMED: Insertable loop recorder. Left anterior chest was anesthetized using subcutaneous lidocaine. A [employer] LINQ, serial number [id number] was inserted subcutaneously without complications. Skin approximated using Dermabond. Patient discharged home same day. Job#: [id number]
--- NOTE | 2018-07-19 11:19 | Diagnostic Imaging Report ---
PROCEDURE:US RETROPERITONEAL ( KIDNEY ). COMPARISON:None. INDICATIONS:CKD, UTI TECHNIQUE: Leahy-scale and color sonographic images of the bilateral kidneys and bladder where obtained in transverse and longitudinal planes. FINDINGS: RIGHT KIDNEY: Measures 9.5 x 4.6 x 3.9 cm, cortex measures 1.5 cm Cysts: There is an extrarenal pelvis versus a peripelvic cyst noted medially. Extrarenal pelvis described on a prior CT dated 09/16/2012. Solid masses: None Stones: None Hydronephrosis: None Echogenicity: Normal LEFT KIDNEY: Measures 10.3 x 4.8 x 4.0 cm, cortex measures 2.2 cm Cysts: None Solid masses: None Stones: None Hydronephrosis: None Echogenicity: Normal Bladder: Estimated bladder volume is 358 cc. Bilateral urinary jets are present. CONCLUSION: No evidence of hydronephrosis. Jarrod Arias D.O. Dictated by: Jarrod Arias D.O. on 07/19/2018 at 11:28 Electronically approved by: Jarrod Arias D.O. on 07/19/2018 at 11:28
== END | disposition home or self-care (01) ==
LOC: CATH LAB 06:29
PROVIDERS: ATTEND Internal Medicine Interventional Cardiology
DX: I48.91 Unspecified atrial fibrillation (principal); N17.9 Acute kidney failure, unspecified; I12.9 Hypertensive chronic kidney disease with stage 1 through stage 4 chronic kidney disease, or unspecified chronic kidney disease; N18.9 Chronic kidney disease, unspecified; G45.9 Transient cerebral ischemic attack, unspecified; N39.0 Urinary tract infection, site not specified; Z79.82 Long term (current) use of aspirin; Z68.30 Body mass index [BMI] 30.0-30.9, adult; Z82.49 Family history of ischemic heart disease and other diseases of the circulatory system
CPT/HCPCS: 33282; 76770; C1764

== ENCOUNTER 2021-10-21 15:13 | Inpatient (IN) | payer MEDICARE, OTHER ==
[~2021-10-21] VITALS: Ht 162.6 cm; Wt 79.8 kg
[~2021-10-21 15:13] MED LIST changes: -LIDOCAINE 1% W/EPINEPHRINE 20 ML VIAL ONE
[2021-10-21] MEDS ORDERED: FAMOTIDINE 20 MG/2 ML VIAL IV STA (15:43)
[2021-10-21] MEDS ORDERED: ONDANSETRON HCL INJ 2MG/ML 2ML 2 MG/ML VIAL IV STA (15:43)
[2021-10-21] MEDS ORDERED: SODIUM CHLORIDE 0.9% 1000ML 1,000 ML IV ONE (15:45)
[2021-10-21 15:58] LABS: BASOPHILS # (AUTO) 0.1 (0.0-0.1); BASOPHILS % 0.3 % (0.0-1.0); EOSINOPHILS % 0.1 % (0.0-6.0); HEMATOCRIT 38.8 % (34.2-44.1); HEMOGLOBIN 11.7 g/dL (12.0-16.0); LYMPHOCYTES # (AUTO) 1.1 (1.0-3.2); LYMPHOCYTES % 5.8 % (18.0-39.1); MEAN CORPUSCULAR HEMOGLOBIN 25.4 pg (28-32); MEAN CORPUSCULAR HGB CONC 30.2 g/dL (31-35); MEAN CORPUSCULAR VOLUME 84.3 fL (81-99); MONOCYTES # (AUTO) 0.6 (0.2-0.8); MONOCYTES % 3.1 % (4.4-11.3); NEUTROPHILS # (AUTO) 16.6 (2.1-6.9); NEUTROPHILS % 90.2 % (38.7-80.0); PLATELET COUNT 468 x10e3/uL (140-360); RED CELL DISTRIBUTION WIDTH 16.5 % (11.7-14.4)
[2021-10-21 16:18] LABS: ALBUMIN 3.1 g/dL (3.5-5.0); ALBUMIN/GLOBULIN RATIO 0.6 (0.8-2.0); ANION GAP 16.4 mmol/L (8-16); CALCIUM 8.9 mg/dL (8.4-10.2); CREATININE, SERUM 1.09 mg/dL (0.57-1.11); POTASSIUM 4.4 mmol/L (3.5-5.1)
[2021-10-21] MEDS ORDERED: ONDANSETRON HCL INJ 2MG/ML 2ML 2 MG/ML VIAL ONE (16:23)
[2021-10-21 16:26] LABS: CREATINE KINASE MB 0.5 ng/mL (0-5.0)
[2021-10-21] MEDS ORDERED: SODIUM CHLORIDE 0.9% 1000ML 1,000 ML IV STA (16:39)
[2021-10-21] MEDS ORDERED: PIPERACILLIN/TAZOBACTAM 3.375 GM in SODIUM CHLORIDE 0.9% 50ML 50 ML IV ONE (16:45)
[2021-10-21] MEDS ORDERED: SODIUM CHLORIDE 0.9% 500ML 500 ML IV ONE (17:15)
[2021-10-21 17:21] LABS: CLARITY,URINE HAZY (CLEAR); COLOR,URINE STRAW (YELLOW); KETONES,URINE 1+ (NEGATIVE); LEUKOCYTE ESTERASE ,URINE TRACE (NEGATIVE); NITRITE,URINE NEGATIVE (NEGATIVE); PROTEIN,URINE DIPSTICK TRACE (NEGATIVE); URINE UROBILINOGEN 0.2 mg/dL (0.2 - 1)
[2021-10-21 17:29] LABS: BACTERIA,URINE MANY /HPF; EPITHELIAL CELLS,URINE MANY /LPF; WBC,URINE (MAN) 0-5 /HPF (0-5)
[2021-10-21] MEDS ORDERED: SODIUM CHLORIDE 0.9% 50ML 50 ML ONE (19:09)
[2021-10-21] MEDS ORDERED: IOPAMIDOL 370 MG/ML 200 ML INFUS..BTL INJ ONE (19:09)
[2021-10-21] MEDS ORDERED: ACETAMINOPHEN 325 MG TAB PO PRN (19:45)
[2021-10-21] MEDS: SODIUM CHLORIDE 0.9% 1000ML 1,000 ML IV SCH ×2 (20:23→23:20)
[2021-10-21] MEDS: ONDANSETRON HCL INJ 2MG/ML 2ML 2 MG/ML VIAL IV PRN (20:29)
[2021-10-21] MEDS: Morphine 2mg Syringe 2 MG/ML SYR IV PRN (20:50)
[2021-10-21 21:00] VITALS: BP 139/76
[2021-10-21 22:00] VITALS: BP 139/76
[2021-10-21] MEDS ORDERED: PIPERACILLIN/TAZOBACTAM 3.375 GM in SODIUM CHLORIDE 0.9% 50ML 50 ML IV SCH (22:00)
[2021-10-21] MEDS: METRONIDAZOLE 500MG/NS 100ML IV SCH (23:20)
[2021-10-22] VITALS (7 sets, daily range): BP systolic 121–140; BP diastolic 59–89
[2021-10-22] MEDS ORDERED: CLIMARA1 EAC1 TOP
[2021-10-22] MEDS ORDERED: ULTRA FLORA PL1 EACH PO
[2021-10-22] MEDS ORDERED: CREON DR 12,001 EACH PO
[2021-10-22] MEDS: PIPERACILLIN/TAZOBACTAM 3.375 GM in SODIUM CHLORIDE 0.9% 50ML 50 ML IV SCH ×2 (00:39→08:49)
[2021-10-22] MEDS: ONDANSETRON HCL INJ 2MG/ML 2ML 2 MG/ML VIAL IV PRN ×4 (00:43→19:53)
[2021-10-22 05:01] LABS: BASOPHILS % 0.4 % (0.0-1.0); EOSINOPHILS # (AUTO) 0.1 (0.0-0.4); EOSINOPHILS % 0.9 % (0.0-6.0); HEMATOCRIT 31.1 % (34.2-44.1); HEMOGLOBIN 9.3 g/dL (12.0-16.0); LYMPHOCYTES # (AUTO) 1.5 (1.0-3.2); LYMPHOCYTES % 16.6 % (18.0-39.1); MEAN CORPUSCULAR HEMOGLOBIN 25.5 pg (28-32); MEAN CORPUSCULAR HGB CONC 29.9 g/dL (31-35); MEAN CORPUSCULAR VOLUME 85.4 fL (81-99); MONOCYTES # (AUTO) 0.6 (0.2-0.8); MONOCYTES % 6.3 % (4.4-11.3); NEUTROPHILS % 75.5 % (38.7-80.0); PLATELET COUNT 315 x10e3/uL (140-360); RED BLOOD COUNT 3.64 x10e6/uL (3.6-5.1); RED CELL DISTRIBUTION WIDTH 16.5 % (11.7-14.4)
[2021-10-22 05:34] LABS: ALBUMIN 2.3 g/dL (3.5-5.0); ALBUMIN/GLOBULIN RATIO 0.7 (0.8-2.0); ANION GAP 11.7 mmol/L (8-16); CALCIUM 7.6 mg/dL (8.4-10.2); CREATININE, SERUM 0.82 mg/dL (0.57-1.11); POTASSIUM 3.7 mmol/L (3.5-5.1)
[2021-10-22] MEDS: METRONIDAZOLE 500MG/NS 100ML IV SCH ×3 (06:00→19:55)
[2021-10-22 06:06] LABS: MAGNESIUM 1.8 MG/DL (1.3-2.1); PHOSPHORUS 2.5 MG/DL (2.3-4.7)
[2021-10-22 06:19] LABS: THYROID STIMULATING HORMONE 0.693 uIU/mL (0.350-4.940)
[2021-10-22] MEDS: SODIUM CHLORIDE 0.9% 1000ML 1,000 ML IV SCH ×2 (11:48→21:52)
[2021-10-22] MEDS: CIPROFLOXACIN 400 MG/D5W 200ML 200 ML IV SCH ×2 (16:19→21:52)
[2021-10-22] MEDS: Morphine 2mg Syringe 2 MG/ML SYR IV PRN (22:26)
[2021-10-23] VITALS (8 sets, daily range): BP systolic 119–157; BP diastolic 57–89
[2021-10-23] MEDS: METRONIDAZOLE 500MG/NS 100ML IV SCH ×4 (00:13→17:27)
[2021-10-23 00:46] LABS: % IRON SATURATION 7 % (15-50); IRON 17 ug/dL (50-170); TOTAL IRON BINDING CAPACITY 256 ug/dL (261-478); TRANSFERRIN 183 mg/dL (180-382)
[2021-10-23] MEDS ORDERED: CHOLESTYRAMINE 4 GM PACKET PO SCH (01:00)
[2021-10-23] MEDS ORDERED: AMITRIPTYLINE HCL 10 MG TAB PO ONE (01:00)
[2021-10-23] MEDS ORDERED: DICYCLOMINE HCL 10 MG CAP PO ONE (01:02)
[2021-10-23] MEDS: ONDANSETRON HCL INJ 2MG/ML 2ML 2 MG/ML VIAL IV PRN ×3 (02:27→20:42)
[2021-10-23] MEDS: SODIUM CHLORIDE 0.9% 1000ML 1,000 ML IV SCH ×4 (03:38→20:42)
[2021-10-23 05:02] LABS: BASOPHILS % 0.4 % (0.0-1.0); EOSINOPHILS # (AUTO) 0.2 (0.0-0.4); EOSINOPHILS % 2.6 % (0.0-6.0); HEMATOCRIT 30.4 % (34.2-44.1); HEMOGLOBIN 8.9 g/dL (12.0-16.0); LYMPHOCYTES # (AUTO) 1.4 (1.0-3.2); LYMPHOCYTES % 18.3 % (18.0-39.1); MEAN CORPUSCULAR HEMOGLOBIN 25.4 pg (28-32); MEAN CORPUSCULAR HGB CONC 29.3 g/dL (31-35); MEAN CORPUSCULAR VOLUME 86.6 fL (81-99); MONOCYTES # (AUTO) 0.7 (0.2-0.8); MONOCYTES % 9.7 % (4.4-11.3); NEUTROPHILS # (AUTO) 5.3 (2.1-6.9); NEUTROPHILS % 68.6 % (38.7-80.0); PLATELET COUNT 292 x10e3/uL (140-360); RED BLOOD COUNT 3.51 x10e6/uL (3.6-5.1); RED CELL DISTRIBUTION WIDTH 16.4 % (11.7-14.4)
[2021-10-23] MEDS: METOCLOPRAMIDE HCL 10 MG/2ML VIAL IV SCH ×3 (05:14→17:27)
[2021-10-23 05:31] LABS: ANION GAP 12.2 mmol/L (8-16); CALCIUM 7.7 mg/dL (8.4-10.2); CREATININE, SERUM 0.76 mg/dL (0.57-1.11); MAGNESIUM 1.9 MG/DL (1.3-2.1); PHOSPHORUS 1.9 MG/DL (2.3-4.7); POTASSIUM 3.2 mmol/L (3.5-5.1)
[2021-10-23] MEDS ORDERED: CHLORDIAZEPOXIDE/CLIDINIUM 1 CAP PO SCH (09:00)
[2021-10-23] MEDS: AMLODIPINE BESYLATE 5 MG TAB PO SCH (09:00)
[2021-10-23] MEDS: CIPROFLOXACIN 400 MG/D5W 200ML 200 ML IV SCH ×2 (09:00→21:13)
[2021-10-23] MEDS ORDERED: BUDESONIDE 3 MG CAPCR PO SCH (09:00)
[2021-10-23] MEDS: AMITRIPTYLINE HCL 25 MG TAB PO SCH (09:00)
[2021-10-23] MEDS: DICYCLOMINE HCL 20 MG TAB PO SCH ×4 (09:00→20:42)
[2021-10-23] MEDS: PRIMIDONE 50 MG TAB PO SCH ×3 (09:00→20:42)
[2021-10-23] MEDS: ATENOLOL 50 MG TAB PO SCH (09:00)
[2021-10-23] MEDS: FAMOTIDINE 20 MG/2 ML VIAL IV SCH (09:00)
[2021-10-23] MEDS: BENZONATATE 100 MG CAP PO SCH ×2 (09:00→17:00)
[2021-10-23] MEDS ORDERED: POTASSIUM CHLORIDE 20 MEQ TAB CR PO ONE (09:30)
[2021-10-23] MEDS: CHOLESTYRAMINE 4 GM PACKET PO SCH ×2 (10:00→22:04)
[2021-10-23] MEDS: MESALAMINE 500 MG CAPCR PO SCH ×2 (10:41→17:00)
[2021-10-23] MEDS: AMITRIPTYLINE HCL 10 MG TAB PO SCH (20:42)
[2021-10-24] VITALS (9 sets, daily range): BP systolic 116–152; BP diastolic 55–89
[2021-10-24] MEDS: METOCLOPRAMIDE HCL 10 MG/2ML VIAL IV SCH ×5 (00:19→23:46)
[2021-10-24] MEDS: METRONIDAZOLE 500MG/NS 100ML IV SCH ×5 (00:19→23:46)
[2021-10-24] MEDS: SODIUM CHLORIDE 0.9% 1000ML 1,000 ML IV SCH ×4 (03:32→21:04)
[2021-10-24 05:09] LABS: BASOPHILS # (AUTO) 0.1 (0.0-0.1); BASOPHILS % 0.6 % (0.0-1.0); EOSINOPHILS # (AUTO) 0.2 (0.0-0.4); EOSINOPHILS % 2.9 % (0.0-6.0); HEMATOCRIT 31.2 % (34.2-44.1); HEMOGLOBIN 9.3 g/dL (12.0-16.0); LYMPHOCYTES # (AUTO) 1.9 (1.0-3.2); LYMPHOCYTES % 22.3 % (18.0-39.1); MEAN CORPUSCULAR HEMOGLOBIN 24.9 pg (28-32); MEAN CORPUSCULAR HGB CONC 29.8 g/dL (31-35); MEAN CORPUSCULAR VOLUME 83.6 fL (81-99); MONOCYTES # (AUTO) 0.6 (0.2-0.8); MONOCYTES % 6.9 % (4.4-11.3); NEUTROPHILS # (AUTO) 5.6 (2.1-6.9); NEUTROPHILS % 66.9 % (38.7-80.0); PLATELET COUNT 316 x10e3/uL (140-360); RED BLOOD COUNT 3.73 x10e6/uL (3.6-5.1); RED CELL DISTRIBUTION WIDTH 16.1 % (11.7-14.4)
[2021-10-24 05:53] LABS: ANION GAP 12.7 mmol/L (8-16); BLOOD UREA NITROGEN < 5 mg/dL (7-26); CALCIUM 7.9 mg/dL (8.4-10.2); CARBON DIOXIDE 21 mmol/L (22-29); CHLORIDE 111 mmol/L (98-107); CREATININE, SERUM 0.77 mg/dL (0.57-1.11); EST GLOMERULAR FILTRATION RATE 75 ML/MIN (60-); GLUCOSE 83 mg/dL (74-118); MAGNESIUM 1.9 MG/DL (1.3-2.1); PHOSPHORUS 2.6 MG/DL (2.3-4.7); POTASSIUM 3.7 mmol/L (3.5-5.1); SODIUM 141 mmol/L (136-145)
[2021-10-24 06:01] LABS: BUN/CREATININE RATIO 6 (6-25)
[2021-10-24] MEDS: ONDANSETRON HCL INJ 2MG/ML 2ML 2 MG/ML VIAL IV PRN (09:51)
[2021-10-24] MEDS: Morphine 2mg Syringe 2 MG/ML SYR IV PRN ×2 (09:53→22:15)
[2021-10-24] MEDS: IRON SUCROSE 100 MG in SODIUM CHLORIDE 0.9% 100 ML 100 ML IV SCH (09:55)
[2021-10-24] MEDS: FAMOTIDINE 20 MG/2 ML VIAL IV SCH (09:59)
[2021-10-24] MEDS: MESALAMINE 500 MG CAPCR PO SCH ×4 (10:04→21:15)
[2021-10-24] MEDS: AMITRIPTYLINE HCL 25 MG TAB PO SCH (10:04)
[2021-10-24] MEDS: PRIMIDONE 50 MG TAB PO SCH ×3 (10:04→21:15)
[2021-10-24] MEDS: DICYCLOMINE HCL 20 MG TAB PO SCH ×4 (10:04→21:15)
[2021-10-24] MEDS: AMLODIPINE BESYLATE 5 MG TAB PO SCH (10:04)
[2021-10-24] MEDS: BUDESONIDE 3 MG CAPCR PO SCH (10:04)
[2021-10-24] MEDS: BENZONATATE 100 MG CAP PO SCH ×2 (10:06→17:22)
[2021-10-24] MEDS: ATENOLOL 50 MG TAB PO SCH (10:06)
[2021-10-24] MEDS: CHOLESTYRAMINE 4 GM PACKET PO SCH ×2 (12:06→22:58)
[2021-10-24] MEDS: CIPROFLOXACIN 400 MG/D5W 200ML 200 ML IV SCH ×2 (12:11→21:15)
[2021-10-24] MEDS: AMITRIPTYLINE HCL 10 MG TAB PO SCH (21:15)
[2021-10-25] MEDS: SODIUM CHLORIDE 0.9% 1000ML 1,000 ML IV SCH ×2 (03:33→13:49)
[2021-10-25 05:05] VITALS: BP 137/65
[2021-10-25 05:17] LABS: BASOPHILS % 0.5 % (0.0-1.0); EOSINOPHILS # (AUTO) 0.2 (0.0-0.4); EOSINOPHILS % 1.9 % (0.0-6.0); HEMATOCRIT 31.1 % (34.2-44.1); HEMOGLOBIN 9.3 g/dL (12.0-16.0); LYMPHOCYTES % 23.8 % (18.0-39.1); MEAN CORPUSCULAR HEMOGLOBIN 25.1 pg (28-32); MEAN CORPUSCULAR HGB CONC 29.9 g/dL (31-35); MEAN CORPUSCULAR VOLUME 84.1 fL (81-99); MONOCYTES # (AUTO) 0.6 (0.2-0.8); MONOCYTES % 7.3 % (4.4-11.3); NEUTROPHILS # (AUTO) 5.6 (2.1-6.9); NEUTROPHILS % 66.1 % (38.7-80.0); PLATELET COUNT 297 x10e3/uL (140-360); RED CELL DISTRIBUTION WIDTH 16.2 % (11.7-14.4)
[2021-10-25] MEDS: METOCLOPRAMIDE HCL 10 MG/2ML VIAL IV SCH ×3 (05:19→17:41)
[2021-10-25] MEDS: METRONIDAZOLE 500MG/NS 100ML IV SCH (05:19)
[2021-10-25 05:38] LABS: BLOOD UREA NITROGEN < 5 mg/dL (7-26); CALCIUM 7.9 mg/dL (8.4-10.2); CARBON DIOXIDE 20 mmol/L (22-29); CHLORIDE 109 mmol/L (98-107); CREATININE, SERUM 0.73 mg/dL (0.57-1.11); EST GLOMERULAR FILTRATION RATE 79 ML/MIN (60-); GLUCOSE 86 mg/dL (74-118); MAGNESIUM 1.7 MG/DL (1.3-2.1); PHOSPHORUS 2.1 MG/DL (2.3-4.7); SODIUM 139 mmol/L (136-145)
[2021-10-25 05:39] LABS: BUN/CREATININE RATIO 7 (6-25)
[2021-10-25] MEDS ORDERED: POTASSIUM PHOSPHATE 15 MM in SODIUM CHLORIDE 0.9% 250ML 250 ML IV ONE (06:45)
[2021-10-25] MEDS ORDERED: PENTASA500 MG PO (07:40)
[2021-10-25 07:50] VITALS: BP 130/65
[2021-10-25] MEDS: FAMOTIDINE 20 MG/2 ML VIAL IV SCH (09:00)
[2021-10-25] MEDS: AMLODIPINE BESYLATE 5 MG TAB PO SCH (09:01)
[2021-10-25] MEDS: PRIMIDONE 50 MG TAB PO SCH ×2 (09:01→17:41)
[2021-10-25] MEDS: ATENOLOL 50 MG TAB PO SCH (09:02)
[2021-10-25] MEDS: MESALAMINE 500 MG CAPCR PO SCH ×2 (09:02→13:40)
[2021-10-25] MEDS: BENZONATATE 100 MG CAP PO SCH ×2 (09:03→17:41)
[2021-10-25] MEDS: CHOLESTYRAMINE 4 GM PACKET PO SCH (09:03)
[2021-10-25] MEDS: AMITRIPTYLINE HCL 25 MG TAB PO SCH (09:03)
[2021-10-25] MEDS: DICYCLOMINE HCL 20 MG TAB PO SCH ×2 (09:03→13:40)
[2021-10-25] MEDS: BUDESONIDE 3 MG CAPCR PO SCH (09:23)
[2021-10-25 10:12] VITALS: BP 130/65
[2021-10-25] MEDS ORDERED: CIPRO250 MG PO (11:03)
[2021-10-25] MEDS ORDERED: FLAGYL375 MG PO (11:03)
[2021-10-25] MEDS ORDERED: POTASSIUM CHLO10 ME1 PO (11:04)
[2021-10-25 11:29] VITALS: BP 125/62
[2021-10-25] MEDS: IRON SUCROSE 100 MG in SODIUM CHLORIDE 0.9% 100 ML 100 ML IV SCH (13:39)
[2021-10-25 16:06] VITALS: BP 136/71
== END 2021-10-25 18:20 | disposition home or self-care (01) | DRG 690 ==
LOC: ER 15:49 → ERHOLD 19:38 → MED/SURG2 22:13
PROVIDERS: ADMIT Internal Medicine; ATTEND Internal Medicine
DX: N39.0 Urinary tract infection, site not specified (principal); K58.0 Irritable bowel syndrome with diarrhea; B96.20 Unspecified Escherichia coli [E. coli] as the cause of diseases classified elsewhere; B95.1 Streptococcus, group B, as the cause of diseases classified elsewhere; I10 Essential (primary) hypertension; Z86.73 Personal history of transient ischemic attack (TIA), and cerebral infarction without residual deficits; Z87.440 Personal history of urinary (tract) infections; D64.9 Anemia, unspecified; K21.9 Gastro-esophageal reflux disease without esophagitis; Z88.8 Allergy status to other drugs, medicaments and biological substances; Z96.651 Presence of right artificial knee joint; Z82.49 Family history of ischemic heart disease and other diseases of the circulatory system; K57.30 Diverticulosis of large intestine without perforation or abscess without bleeding; E87.6 Hypokalemia; D50.9 Iron deficiency anemia, unspecified; E83.39 Other disorders of phosphorus metabolism; Z20.822 Contact with and (suspected) exposure to COVID-19
CPT/HCPCS: 36415; 71045; 74177; 80048; 80053; 81001; 82550; 82553; 82607; 82746; 82948; 83036; 83540; 83605; 83735; 83993; 84100; 84443; 84466; 84484; 85025; 85045; 87040; 87045; 87086; 87177; 87186; 87328; 87493; 93005; 96360; 99251; 99283; J1756; J2270; J2405; J2543; J2765; J7030; J7040; J7050; Q9967; U0002

== ENCOUNTER 2022-03-01 17:56 | Inpatient (IN) | payer MEDICARE ==
[~2022-03-01] VITALS: Ht 162.6 cm; Wt 76.2 kg
[~2022-03-01 17:56] MED LIST changes: +CIPRO250 MG PO; +CLIMARA1 EAC1 TOP; +CREON DR 12,001 EACH PO; +FLAGYL375 MG PO; +POTASSIUM CHLO10 ME1 PO; +ULTRA FLORA PL1 EACH PO
[2022-03-01] MEDS ORDERED: SODIUM CHLORIDE 0.9% 1000ML 2,000 ML IV ONE (18:15)
[2022-03-01] MEDS ORDERED: ACETAMINOPHEN 325 MG TAB PO ONE (18:15)
[2022-03-01] MEDS ORDERED: Vancomycin IV 1 GM in SODIUM CHLORIDE 0.9% 250ML 250 ML IV ONE (18:15)
[2022-03-01] MEDS ORDERED: SODIUM CHLORIDE 0.9% 1000ML 1,000 ML IV STA (18:18)
[2022-03-01 18:51] LABS: BASOPHILS # (AUTO) 0.1 (0.0-0.1); BASOPHILS % 0.3 % (0.0-1.0); EOSINOPHILS % 0.1 % (0.0-6.0); HEMATOCRIT 37.4 % (34.2-44.1); HEMOGLOBIN 11.6 g/dL (12.0-16.0); LYMPHOCYTES # (AUTO) 1.8 (1.0-3.2); LYMPHOCYTES % 9.9 % (18.0-39.1); MEAN CORPUSCULAR HEMOGLOBIN 26.1 pg (28-32); MONOCYTES # (AUTO) 1.1 (0.2-0.8); MONOCYTES % 6.2 % (4.4-11.3); NEUTROPHILS # (AUTO) 14.8 (2.1-6.9); NEUTROPHILS % 83.1 % (38.7-80.0); PLATELET COUNT 354 x10e3/uL (140-360); RED BLOOD COUNT 4.45 x10e6/uL (3.6-5.1); RED CELL DISTRIBUTION WIDTH 14.9 % (11.7-14.4)
[2022-03-01 18:52] LABS: CLARITY,URINE HAZY (CLEAR); COLOR,URINE YELLOW (YELLOW); KETONES,URINE >=160 (NEGATIVE); LEUKOCYTE ESTERASE ,URINE NEGATIVE (NEGATIVE); NITRITE,URINE NEGATIVE (NEGATIVE); PROTEIN,URINE DIPSTICK NEGATIVE (NEGATIVE)
[2022-03-01 18:53] LABS: URINE UROBILINOGEN 0.2 mg/dL (0.2 - 1)
[2022-03-01 18:56] LABS: BACTERIA,URINE MODERATE /HPF; EPITHELIAL CELLS,URINE MODERATE /LPF
[2022-03-01 19:03] LABS: INR 1.16; PROTHROMBIN TIME 15.8 seconds (11.9-14.5)
[2022-03-01 19:04] LABS: PARTIAL THROMBOPLASTIN TIME 35.3 seconds (23.8-35.5)
[2022-03-01 19:13] LABS: ALANINE AMINOTRANSFERASE 8 IU/L (0-55); ALBUMIN 3.1 g/dL (3.5-5.0); ALBUMIN/GLOBULIN RATIO 0.7 (0.8-2.0); ALKALINE PHOSPHATASE 85 IU/L (40-150); ANION GAP 15.4 mmol/L (8-16); BLOOD UREA NITROGEN 7 mg/dL (7-26); BUN/CREATININE RATIO 9 (6-25); CALCIUM 8.1 mg/dL (8.4-10.2); CARBON DIOXIDE 25 mmol/L (22-29); CHLORIDE 100 mmol/L (98-107); CREATININE, SERUM 0.82 mg/dL (0.57-1.11); GLUCOSE 132 mg/dL (74-118); POTASSIUM 3.4 mmol/L (3.5-5.1); SODIUM 137 mmol/L (136-145)
[2022-03-01 19:29] LABS: CREATINE KINASE 53 IU/L (29-168)
[2022-03-01] MEDS ORDERED: IOPAMIDOL 370 MG/ML 100 ML INFUS..BTL INJ ONE (19:52)
[2022-03-01] MEDS: SODIUM CHLORIDE 0.9% 1000ML 1,000 ML IV SCH ×2 (22:17→23:34)
[2022-03-01 22:53] VITALS: BP 145/82
[2022-03-01] MEDS: Morphine 2mg Syringe 2 MG/ML SYR IV PRN (23:32)
[2022-03-01] MEDS: ONDANSETRON HCL INJ 2MG/ML 2ML 2 MG/ML VIAL IV PRN (23:32)
[2022-03-01] MEDS ORDERED: ELIQUIS5 MG PO (23:38)
[2022-03-02] VITALS (8 sets, daily range): BP systolic 113–146; BP diastolic 68–82
[2022-03-02] MEDS: ONDANSETRON HCL INJ 2MG/ML 2ML 2 MG/ML VIAL IV PRN ×4 (04:08→17:30)
[2022-03-02] MEDS: Morphine 2mg Syringe 2 MG/ML SYR IV PRN ×4 (04:08→17:30)
[2022-03-02] MEDS: METRONIDAZOLE 500MG/NS 100ML 100 ML IV SCH ×3 (05:26→21:12)
[2022-03-02 07:00] LABS: BASOPHILS # (AUTO) 0.1 (0.0-0.1); BASOPHILS % 0.4 % (0.0-1.0); EOSINOPHILS % 0.1 % (0.0-6.0); HEMATOCRIT 36.4 % (34.2-44.1); HEMOGLOBIN 11.1 g/dL (12.0-16.0); LYMPHOCYTES # (AUTO) 1.9 (1.0-3.2); LYMPHOCYTES % 12.1 % (18.0-39.1); MEAN CORPUSCULAR HEMOGLOBIN 25.5 pg (28-32); MEAN CORPUSCULAR HGB CONC 30.5 g/dL (31-35); MEAN CORPUSCULAR VOLUME 83.7 fL (81-99); MONOCYTES # (AUTO) 1.3 (0.2-0.8); MONOCYTES % 8.1 % (4.4-11.3); NEUTROPHILS # (AUTO) 12.6 (2.1-6.9); NEUTROPHILS % 78.6 % (38.7-80.0); PLATELET COUNT 321 x10e3/uL (140-360); RED BLOOD COUNT 4.35 x10e6/uL (3.6-5.1)
[2022-03-02 07:29] LABS: ANION GAP 12.3 mmol/L (8-16); CALCIUM 7.6 mg/dL (8.4-10.2); CREATININE, SERUM 0.74 mg/dL (0.57-1.11); POTASSIUM 3.3 mmol/L (3.5-5.1)
[2022-03-02] MEDS: SODIUM CHLORIDE 0.9% 1000ML 1,000 ML IV SCH ×2 (08:36→22:15)
[2022-03-02] MEDS: ACETAMINOPHEN 325 MG TAB PO PRN (09:29)
[2022-03-02] MEDS ORDERED: bentyl PO (09:40)
[2022-03-02] MEDS ORDERED: PENTASA500 MG PO (09:40)
[2022-03-02] MEDS ORDERED: budesonide PO (09:41)
[2022-03-02] MEDS ORDERED: POTASSIUM CHLORIDE 20 MEQ TAB CR PO ONE (15:00)
[2022-03-02] MEDS: PRIMIDONE 50 MG TAB PO SCH ×2 (16:06→21:08)
[2022-03-02] MEDS: MESALAMINE 500 MG CAPCR PO SCH (16:06)
[2022-03-02] MEDS ORDERED: ipratropium bromide (20:15)
[2022-03-02] MEDS ORDERED: NITROFURANTOIN100 M1 PO (20:15)
[2022-03-02] MEDS ORDERED: LOTRONEX1 MG PO (20:15)
[2022-03-02] MEDS ORDERED: [UNRECOGNIZED DRUG - OTHER] (20:15)
[2022-03-02] MEDS ORDERED: OFLOXACIN5 ML EACH EAR (20:15)
[2022-03-02] MEDS ORDERED: COLESTIPOL HCL1 GM PO (20:15)
[2022-03-02] MEDS ORDERED: magnesium PO (20:15)
[2022-03-02] MEDS ORDERED: FAMOTIDINE20 MG PO (20:15)
[2022-03-02] MEDS ORDERED: fish oil PO (20:15)
[2022-03-02] MEDS ORDERED: levocetirizine PO (20:15)
[2022-03-02] MEDS ORDERED: CIPROFLOX-DEXA7.5 ML EACH EAR (20:15)
[2022-03-02] MEDS ORDERED: PROMETHAZINE HC25 M1 PO (20:15)
[2022-03-02] MEDS ORDERED: AZO BLADDER CO300 MG PO (20:15)
[2022-03-02] MEDS ORDERED: TIZANIDINE HCL4 M1 PO (20:15)
[2022-03-02] MEDS ORDERED: FLONASE ALLERG9.9 ML INH (20:15)
[2022-03-02] MEDS ORDERED: VITAMIN B-121000 MCG PO (20:15)
[2022-03-02] MEDS ORDERED: LOMOTIL TABLET1 EACH PO (20:15)
[2022-03-02] MEDS ORDERED: MUCINEX600 MG PO (20:15)
[2022-03-02] MEDS: AMITRIPTYLINE HCL 25 MG TAB PO SCH (21:08)
[2022-03-02] MEDS ORDERED: ATENOLOL 50 MG TAB PO ONE (21:15)
[2022-03-03] VITALS (8 sets, daily range): BP systolic 113–133; BP diastolic 61–73
[2022-03-03] MEDS ORDERED: BENZONATATE 100 MG CAP PO STA (00:09)
[2022-03-03] MEDS ORDERED: FAMOTIDINE 20 MG/2 ML VIAL IV STA (00:11)
[2022-03-03] MEDS: METOCLOPRAMIDE HCL 10 MG/2ML VIAL IV SCH ×4 (00:20→17:18)
[2022-03-03] MEDS: BENZONATATE 100 MG CAP PO PRN (00:20)
[2022-03-03] MEDS: SODIUM CHLORIDE 0.9% 1000ML 1,000 ML IV SCH ×3 (06:15→21:04)
[2022-03-03] MEDS: METRONIDAZOLE 500MG/NS 100ML 100 ML IV SCH ×3 (06:17→20:57)
[2022-03-03] MEDS: ONDANSETRON HCL INJ 2MG/ML 2ML 2 MG/ML VIAL IV PRN ×3 (06:31→17:21)
[2022-03-03] MEDS: Morphine 2mg Syringe 2 MG/ML SYR IV PRN ×3 (06:31→17:27)
[2022-03-03 06:47] LABS: HEMATOCRIT 33.5 % (34.2-44.1); HEMOGLOBIN 10.1 g/dL (12.0-16.0); MEAN CORPUSCULAR HEMOGLOBIN 25.5 pg (28-32); MEAN CORPUSCULAR HGB CONC 30.1 g/dL (31-35); MEAN CORPUSCULAR VOLUME 84.6 fL (81-99); PLATELET COUNT 324 x10e3/uL (140-360); RED BLOOD COUNT 3.96 x10e6/uL (3.6-5.1); RED CELL DISTRIBUTION WIDTH 15.2 % (11.7-14.4)
[2022-03-03 07:31] LABS: ALBUMIN 2.3 g/dL (3.5-5.0); ALBUMIN/GLOBULIN RATIO 0.6 (0.8-2.0); ANION GAP 10.7 mmol/L (8-16); CALCIUM 7.4 mg/dL (8.4-10.2); CREATININE, SERUM 0.69 mg/dL (0.57-1.11); POTASSIUM 3.7 mmol/L (3.5-5.1)
[2022-03-03] MEDS: PRIMIDONE 50 MG TAB PO SCH ×3 (08:39→20:57)
[2022-03-03] MEDS: MESALAMINE 500 MG CAPCR PO SCH ×2 (08:39→17:17)
[2022-03-03] MEDS: ATENOLOL 50 MG TAB PO SCH (08:39)
[2022-03-03] MEDS: AMLODIPINE BESYLATE 5 MG TAB PO SCH (08:39)
[2022-03-03] MEDS: APIXABAN 5 MG TABLET PO SCH (08:39)
[2022-03-03] MEDS: FAMOTIDINE 20 MG/2 ML VIAL IV SCH ×2 (08:39→17:27)
[2022-03-03 12:30] LABS: EOSINOPHILS % (MANUAL) 2 % (0-7); LYMPHOCYTES % (MANUAL) 14 % (19-48); MONOCYTES % (MANUAL) 1 % (3.4-9.0); NEUTROPHILS % (MANUAL) 83 % (40-74); PLATELET ESTIMATE ADEQUATE; PLATELET MORPHOLOGY COMMENT NORMAL; RBC MORPHOLOGY COMMENT NORMAL
[2022-03-03] MEDS: ACETAMINOPHEN 325 MG TAB PO PRN (14:29)
[2022-03-03] MEDS: AMITRIPTYLINE HCL 25 MG TAB PO SCH (20:56)
[2022-03-04] VITALS (7 sets, daily range): BP systolic 114–137; BP diastolic 63–79
[2022-03-04] MEDS: METOCLOPRAMIDE HCL 10 MG/2ML VIAL IV SCH ×5 (00:02→23:07)
[2022-03-04] MEDS: ONDANSETRON HCL INJ 2MG/ML 2ML 2 MG/ML VIAL IV PRN ×2 (00:03→15:07)
[2022-03-04] MEDS: Morphine 2mg Syringe 2 MG/ML SYR IV PRN ×3 (00:04→14:18)
[2022-03-04 01:37] LABS: % IRON SATURATION 7 % (15-50); IRON 16 ug/dL (50-170); TOTAL IRON BINDING CAPACITY 245 ug/dL (261-478); TRANSFERRIN 175 mg/dL (180-382)
[2022-03-04] MEDS: BENZONATATE 100 MG CAP PO PRN (04:12)
[2022-03-04] MEDS: SODIUM CHLORIDE 0.9% 1000ML 1,000 ML IV SCH ×3 (05:51→22:15)
[2022-03-04] MEDS: METRONIDAZOLE 500MG/NS 100ML 100 ML IV SCH ×3 (05:52→21:31)
[2022-03-04 06:05] LABS: BASOPHILS # (AUTO) 0.1 (0.0-0.1); BASOPHILS % 0.6 % (0.0-1.0); EOSINOPHILS # (AUTO) 0.4 (0.0-0.4); EOSINOPHILS % 3.6 % (0.0-6.0); HEMATOCRIT 33.2 % (34.2-44.1); HEMOGLOBIN 9.9 g/dL (12.0-16.0); LYMPHOCYTES # (AUTO) 1.7 (1.0-3.2); LYMPHOCYTES % 15.8 % (18.0-39.1); MEAN CORPUSCULAR HEMOGLOBIN 25.8 pg (28-32); MEAN CORPUSCULAR HGB CONC 29.8 g/dL (31-35); MEAN CORPUSCULAR VOLUME 86.7 fL (81-99); MONOCYTES # (AUTO) 0.8 (0.2-0.8); MONOCYTES % 6.9 % (4.4-11.3); NEUTROPHILS # (AUTO) 7.9 (2.1-6.9); NEUTROPHILS % 72.7 % (38.7-80.0); PLATELET COUNT 329 x10e3/uL (140-360); RED BLOOD COUNT 3.83 x10e6/uL (3.6-5.1); RED CELL DISTRIBUTION WIDTH 15.1 % (11.7-14.4)
[2022-03-04 06:24] LABS: ANION GAP 11.5 mmol/L (8-16); CALCIUM 7.3 mg/dL (8.4-10.2); CREATININE, SERUM 0.71 mg/dL (0.57-1.11); POTASSIUM 3.5 mmol/L (3.5-5.1)
[2022-03-04] MEDS: AMLODIPINE BESYLATE 5 MG TAB PO SCH (09:39)
[2022-03-04] MEDS: APIXABAN 5 MG TABLET PO SCH (09:39)
[2022-03-04] MEDS: ATENOLOL 50 MG TAB PO SCH (09:40)
[2022-03-04] MEDS: FAMOTIDINE 20 MG/2 ML VIAL IV SCH ×2 (09:40→18:22)
[2022-03-04] MEDS: PRIMIDONE 50 MG TAB PO SCH ×3 (09:44→20:32)
[2022-03-04] MEDS: MESALAMINE 500 MG CAPCR PO SCH ×2 (09:45→18:21)
[2022-03-04] MEDS: AMITRIPTYLINE HCL 25 MG TAB PO SCH (20:32)
[2022-03-05] VITALS (7 sets, daily range): BP systolic 119–146; BP diastolic 55–80
[2022-03-05] MEDS ORDERED: FOLIC ACID 1 MG TAB PO ONE (00:45)
[2022-03-05] MEDS: ONDANSETRON HCL INJ 2MG/ML 2ML 2 MG/ML VIAL IV PRN ×3 (01:06→23:20)
[2022-03-05] MEDS: Morphine 2mg Syringe 2 MG/ML SYR IV PRN ×4 (01:07→23:20)
[2022-03-05 05:35] LABS: BASOPHILS # (AUTO) 0.1 (0.0-0.1); BASOPHILS % 0.7 % (0.0-1.0); EOSINOPHILS # (AUTO) 0.3 (0.0-0.4); EOSINOPHILS % 3.7 % (0.0-6.0); HEMATOCRIT 31.5 % (34.2-44.1); HEMOGLOBIN 9.5 g/dL (12.0-16.0); LYMPHOCYTES % 22.4 % (18.0-39.1); MEAN CORPUSCULAR HEMOGLOBIN 25.5 pg (28-32); MEAN CORPUSCULAR HGB CONC 30.2 g/dL (31-35); MEAN CORPUSCULAR VOLUME 84.5 fL (81-99); MONOCYTES # (AUTO) 0.6 (0.2-0.8); MONOCYTES % 6.5 % (4.4-11.3); NEUTROPHILS # (AUTO) 5.8 (2.1-6.9); NEUTROPHILS % 66.2 % (38.7-80.0); PLATELET COUNT 360 x10e3/uL (140-360); RED BLOOD COUNT 3.73 x10e6/uL (3.6-5.1)
[2022-03-05] MEDS: METOCLOPRAMIDE HCL 10 MG/2ML VIAL IV SCH ×4 (05:35→23:11)
[2022-03-05] MEDS: METRONIDAZOLE 500MG/NS 100ML 100 ML IV SCH ×3 (05:35→22:09)
[2022-03-05] MEDS: SODIUM CHLORIDE 0.9% 1000ML 1,000 ML IV SCH (05:38)
[2022-03-05 05:52] LABS: ANION GAP 13.3 mmol/L (8-16); BLOOD UREA NITROGEN < 5 mg/dL (7-26); CALCIUM 7.2 mg/dL (8.4-10.2); CARBON DIOXIDE 22 mmol/L (22-29); CHLORIDE 107 mmol/L (98-107); CREATININE, SERUM 0.66 mg/dL (0.57-1.11); GLUCOSE 71 mg/dL (74-118); POTASSIUM 3.3 mmol/L (3.5-5.1); SODIUM 139 mmol/L (136-145)
[2022-03-05 05:58] LABS: BUN/CREATININE RATIO 8 (6-25)
[2022-03-05] MEDS: FAMOTIDINE 20 MG/2 ML VIAL IV SCH ×2 (09:43→17:16)
[2022-03-05] MEDS: MESALAMINE 500 MG CAPCR PO SCH ×2 (09:44→17:16)
[2022-03-05] MEDS: AMLODIPINE BESYLATE 5 MG TAB PO SCH (09:44)
[2022-03-05] MEDS: FOLIC ACID 1 MG TAB PO SCH (09:44)
[2022-03-05] MEDS: IRON SUCROSE 100 MG in SODIUM CHLORIDE 0.9% 100 ML 100 ML IV SCH (09:44)
[2022-03-05] MEDS: PRIMIDONE 50 MG TAB PO SCH ×3 (09:45→20:40)
[2022-03-05] MEDS: ATENOLOL 50 MG TAB PO SCH (09:45)
[2022-03-05] MEDS: APIXABAN 5 MG TABLET PO SCH (09:46)
[2022-03-05] MEDS ORDERED: POTASSIUM CHLORIDE 20 MEQ TAB CR PO ONE (16:30)
[2022-03-05] MEDS ORDERED: LOPERAMIDE HCL 2 MG CAP PO ONE (18:00)
[2022-03-05] MEDS: AMITRIPTYLINE HCL 25 MG TAB PO SCH (20:40)
[2022-03-05] MEDS: BENZONATATE 100 MG CAP PO PRN (23:11)
[2022-03-06] VITALS: BP 130/69
[2022-03-06 04:00] VITALS: BP 130/59
[2022-03-06] MEDS: METRONIDAZOLE 500MG/NS 100ML 100 ML IV SCH ×2 (05:09→14:00)
[2022-03-06] MEDS: METOCLOPRAMIDE HCL 10 MG/2ML VIAL IV SCH ×2 (05:09→11:24)
[2022-03-06] MEDS: ONDANSETRON HCL INJ 2MG/ML 2ML 2 MG/ML VIAL IV PRN (05:32)
[2022-03-06] MEDS: Morphine 2mg Syringe 2 MG/ML SYR IV PRN (05:32)
[2022-03-06] MEDS: BENZONATATE 100 MG CAP PO PRN (05:40)
[2022-03-06] MEDS ORDERED: CHOLESTYRAMINE 4 GM PACKET PO PRN (06:00)
[2022-03-06 06:26] LABS: ANION GAP 10.2 mmol/L (8-16); BLOOD UREA NITROGEN < 5 mg/dL (7-26); CALCIUM 7.9 mg/dL (8.4-10.2); CARBON DIOXIDE 26 mmol/L (22-29); CHLORIDE 106 mmol/L (98-107); CREATININE, SERUM 0.68 mg/dL (0.57-1.11); GLUCOSE 77 mg/dL (74-118); POTASSIUM 3.2 mmol/L (3.5-5.1); SODIUM 139 mmol/L (136-145)
[2022-03-06 06:44] LABS: BUN/CREATININE RATIO 7 (6-25)
[2022-03-06 07:56] VITALS: BP 134/72
[2022-03-06 08:01] VITALS: BP 134/72
[2022-03-06] MEDS: AMLODIPINE BESYLATE 5 MG TAB PO SCH (09:00)
[2022-03-06] MEDS: APIXABAN 5 MG TABLET PO SCH (09:00)
[2022-03-06] MEDS: PRIMIDONE 50 MG TAB PO SCH (09:00)
[2022-03-06] MEDS: MESALAMINE 500 MG CAPCR PO SCH (09:00)
[2022-03-06] MEDS: FOLIC ACID 1 MG TAB PO SCH (09:00)
[2022-03-06] MEDS: ATENOLOL 50 MG TAB PO SCH (09:00)
[2022-03-06] MEDS: FAMOTIDINE 20 MG/2 ML VIAL IV SCH (11:24)
[2022-03-06 11:40] VITALS: BP 136/69
[2022-03-06] MEDS ORDERED: METOCLOPRAMIDE10 MG PO (12:07)
[2022-03-06] MEDS ORDERED: METRONIDAZOLE500 MG PO (12:07)
[2022-03-06] MEDS ORDERED: CEFUROXIME250 MG PO (12:07)
[2022-03-06] MEDS ORDERED: POTASSIUM CHLORIDE 20 MEQ TAB CR PO NR (12:15)
[2022-03-06] MEDS: IRON SUCROSE 100 MG in SODIUM CHLORIDE 0.9% 100 ML 100 ML IV SCH (14:22)
[2022-03-06] MEDS ORDERED: METRONIDAZOLE 500 MG TAB PO SCH (15:30)
[2022-03-06] MEDS ORDERED: FAMOTIDINE 20 MG TAB PO SCH (17:00)
[2022-03-06] MEDS ORDERED: METOCLOPRAMIDE HCL 10 MG TAB PO SCH (18:00)
== END 2022-03-06 15:48 | disposition home or self-care (01) | DRG 872 ==
LOC: ER 18:08 → ERHOLD 22:05 → MED/SURG2 22:38
PROVIDERS: ADMIT Internal Medicine; ATTEND Internal Medicine
PROC: 3E03329 Introduction of Other Anti-infective into Peripheral Vein, Percutaneous Approach (ICD-10-PCS; 2022-03-01)
PROC: 02HV33Z Insertion of Infusion Device into Superior Vena Cava, Percutaneous Approach (ICD-10-PCS; principal; 2022-03-02)
DX: A41.9 Sepsis, unspecified organism (principal); K50.90 Crohn's disease, unspecified, without complications; K57.32 Diverticulitis of large intestine without perforation or abscess without bleeding; E87.6 Hypokalemia; K21.00 Gastro-esophageal reflux disease with esophagitis, without bleeding; K44.9 Diaphragmatic hernia without obstruction or gangrene; I10 Essential (primary) hypertension; R05.3 Chronic cough; Z86.73 Personal history of transient ischemic attack (TIA), and cerebral infarction without residual deficits; Z88.8 Allergy status to other drugs, medicaments and biological substances; Z20.822 Contact with and (suspected) exposure to COVID-19; Z87.19 Personal history of other diseases of the digestive system
CPT/HCPCS: 36415; 71045; 74177; 74230; 80048; 80053; 81001; 82550; 82553; 82607; 82746; 83540; 83605; 84466; 84484; 85007; 85025; 85027; 85045; 85610; 85730; 87040; 99284; J1756; J2270; J2405; J2543; J2765; J3370; J7030; J7050; Q9967

== ENCOUNTER → 2022-04-16 | Day surgery (SDC) | payer MEDICARE ==
[2022-04-14 14:18] LABS: BASOPHILS # (AUTO) 0.1 (0.0-0.1); BASOPHILS % 0.6 % (0.0-1.0); EOSINOPHILS # (AUTO) 0.1 (0.0-0.4); HEMATOCRIT 39.4 % (34.2-44.1); HEMOGLOBIN 12.1 g/dL (12.0-16.0); LYMPHOCYTES # (AUTO) 2.3 (1.0-3.2); LYMPHOCYTES % 22.3 % (18.0-39.1); MEAN CORPUSCULAR HGB CONC 30.7 g/dL (31-35); MEAN CORPUSCULAR VOLUME 84.7 fL (81-99); MONOCYTES # (AUTO) 0.6 (0.2-0.8); MONOCYTES % 5.8 % (4.4-11.3); NEUTROPHILS # (AUTO) 7.3 (2.1-6.9); PLATELET COUNT 406 x10e3/uL (140-360); RED BLOOD COUNT 4.65 x10e6/uL (3.6-5.1); RED CELL DISTRIBUTION WIDTH 15.3 % (11.7-14.4)
[~2022-04-16] MED LIST changes: +AZO BLADDER CO300 MG PO; +CEFUROXIME250 MG PO; +CIPROFLOX-DEXA7.5 ML EACH EAR; +COLESTIPOL HCL1 GM PO; +ELIQUIS5 MG PO; +FAMOTIDINE20 MG PO; +FENTANYL CITRATE/PF 100MCG/2 ML INJ ONE; +FLONASE ALLERG9.9 ML INH; +HYOSCYAMINE SULFATE 0.5 MG/ML INJ ONE; +LIDOCAINE HCL 2% LOCAL INJ 5 ML SDV VIAL INJ ONE; +METOCLOPRAMIDE10 MG PO; +METRONIDAZOLE500 MG PO; +MIDAZOLAM HCL 2 MG/2 ML VIAL ONE; +MUCINEX600 MG PO; +NITROFURANTOIN100 M1 PO; +OFLOXACIN5 ML EACH EAR; +PROMETHAZINE HC25 M1 PO; +PROPOFOL IV EMULSION 10 MG/ML 20 ML VIAL ONE; +TIZANIDINE HCL4 M1 PO; +VITAMIN B-121000 MCG PO; +[UNRECOGNIZED DRUG - OTHER]; +bentyl PO; +budesonide PO; +fish oil PO; +ipratropium bromide; +levocetirizine PO; +magnesium PO
[2022-04-16 11:05] VITALS: BP 152/73
[2022-04-16 16:52] LABS: WBC,FECAL (FECAL LACTOFERRIN) NEGATIVE (NEGATIVE)
[2022-04-20 15:12] LABS: ENDOMYSIAL ANTIBODIES, IGA Negative (Negative)
== END | disposition home or self-care (01) ==
LOC: OR 07:00
PROVIDERS: ATTEND Internal Medicine Gastroenterology
DX: K29.50 Unspecified chronic gastritis without bleeding (principal); D12.1 Benign neoplasm of appendix; D12.2 Benign neoplasm of ascending colon; D12.4 Benign neoplasm of descending colon; K62.1 Rectal polyp; K52.9 Noninfective gastroenteritis and colitis, unspecified; K20.90 Esophagitis, unspecified without bleeding; K44.9 Diaphragmatic hernia without obstruction or gangrene; K21.9 Gastro-esophageal reflux disease without esophagitis; K57.30 Diverticulosis of large intestine without perforation or abscess without bleeding; K62.89 Other specified diseases of anus and rectum; K57.92 Diverticulitis of intestine, part unspecified, without perforation or abscess without bleeding; K64.8 Other hemorrhoids; Z71.3 Dietary counseling and surveillance; I48.91 Unspecified atrial fibrillation; I44.0 Atrioventricular block, first degree; I10 Essential (primary) hypertension; E78.5 Hyperlipidemia, unspecified; F32.A Depression, unspecified; Z88.8 Allergy status to other drugs, medicaments and biological substances; Z01.810 Encounter for preprocedural cardiovascular examination; Z01.812 Encounter for preprocedural laboratory examination; Z20.822 Contact with and (suspected) exposure to COVID-19; Z79.02 Long term (current) use of antithrombotics/antiplatelets; Z79.899 Other long term (current) drug therapy; Z68.28 Body mass index [BMI] 28.0-28.9, adult; Z86.73 Personal history of transient ischemic attack (TIA), and cerebral infarction without residual deficits
CPT/HCPCS: 0223U; 36415; 43239; 45378; 45380; 45385; 82784; 83516; 83630; 83993; 85025; 86256; 87045; 87177; 87324; 87328; 87449; 87493; 93005; J1980; J2001; J2250; J3010

== ENCOUNTER → 2022-07-07 | Outpatient (CLI) | payer SELFPAY ==
[~2022-07-07] MED LIST changes: -FENTANYL CITRATE/PF 100MCG/2 ML INJ ONE; -HYOSCYAMINE SULFATE 0.5 MG/ML INJ ONE; +IOPAMIDOL 370 MG/ML 100 ML INFUS..BTL INJ ONE; -LIDOCAINE HCL 2% LOCAL INJ 5 ML SDV VIAL INJ ONE; -MIDAZOLAM HCL 2 MG/2 ML VIAL ONE; -PROPOFOL IV EMULSION 10 MG/ML 20 ML VIAL ONE; +SODIUM CHLORIDE 0.9% 100 ML ONE
[2022-07-07 13:52] LABS: CREATININE, SERUM 0.88 mg/dL (0.57-1.11)
== END ==
LOC: CT 12:33
PROVIDERS: ATTEND Internal Medicine Interventional Cardiology
DX: R07.9 Chest pain, unspecified (principal); I48.91 Unspecified atrial fibrillation; I25.10 Atherosclerotic heart disease of native coronary artery without angina pectoris; I28.8 Other diseases of pulmonary vessels
CPT/HCPCS: 36415; 71275; 82565; 84520; J7050; Q9967

== ENCOUNTER → 2024-01-25 | Outpatient (REF) | payer MEDICARE ==
[~2024-01-25] MED LIST changes: +NITROGLYCERIN 0.4 MG SUBL ONE; -SODIUM CHLORIDE 0.9% 100 ML ONE
[2024-01-25 10:10] LABS: CREATININE, SERUM 0.99 mg/dL (0.57-1.11)
== END ==
LOC: CT 09:24
PROVIDERS: ATTEND Internal Medicine Interventional Cardiology
DX: I25.10 Atherosclerotic heart disease of native coronary artery without angina pectoris (principal)
CPT/HCPCS: 36415; 75574; 82565; 84520; Q9967